=== PATIENT | female | born 1955 | race Hispanic/Latino ===

== ENCOUNTER 2021-03-13 13:52 | Emergency (ER) | payer MEDICARE ==
[2021-03-13] MEDS ORDERED: LISINOPRIL 5 MG TAB PO ONE (14:13)
[2021-03-13] MEDS ORDERED: ACETAMINOPHEN 500 MG TAB PO ONE (14:13)
[2021-03-13] MEDS ORDERED: METOPROLOL TARTRATE 50 MG TAB PO ONE (14:13)
[2021-03-13] MEDS ORDERED: hydrALAZINE 25 MG TAB PO ONE (14:13)
--- NOTE | 2021-03-13 14:27 | Emergency Department Report ---
ED General Adult HPI - General Chief complaint: Headache Stated complaint: HEADACHE Time Seen by Provider: 03/13/21 14:06 Source: patient, EMS Mode of arrival: Stretcher Limitations: No Limitations - History of Present Illness Initial comments: Patient presents secondary to headache and elevated blood pressure. [place]. Apparently they tried to wake her at 6:30 AM by intercom. She did not wake up and slept through this announcement. When she woke up, she needed her blood pressure medication. She normally takes lisinopril, metoprolol, and hydralazine twice a day. Because she did not get up at 630, apparently sarah refused to give her the medication and told her "you should have gotten up when we woke you." Patient now has a global headache. It is not worse with inspiration. Was gradual onset not abrupt. It was not at maximum intensity at the time of onset. She states that they would not give her Tylenol and was directed here for evaluation. Patient has no blurred vision or double vision. Has no chest pain. Is no shortness of breath. She does state that she has some wheezing and that is chronic for her but she does not have an albuterol inhaler to use. Severity scale (0 -10): 8 - Related Data Previous Rx's Medication Instructions Recorded Last Taken Type Albuterol Sulfate [Proventil Hfa] 2 puff IH 4XD #1 inh 03/13/21 Unknown Rx hydrOXYzine PAMOATE [Vistaril] 25 mg PO HS PRN #20 cap 03/13/21 Unknown Rx Allergies Allergy/AdvReac Type Severity Reaction Status Date / Time codeine Allergy Unknown Verified 03/13/21 14:00 steroids AdvReac Shortness Uncoded 03/13/21 14:00 of Breath ED Review of Systems ROS: Stated complaint: HEADACHE Other details as noted in HPI Comment: All other systems reviewed and negative Constitutional: denies: fever Eyes: denies: vision change ENT: denies: throat pain Respiratory: denies: cough Cardiovascular: denies: chest pain Endocrine: denies: unexplained weight loss Gastrointestinal: denies: abdominal pain Genitourinary: denies: dysuria Musculoskeletal: denies: back pain Skin: denies: rash Neurological: denies: headache Hematological/Lymphatic: denies: easy bruising ED Past Medical Hx - Past Medical History Previous Medical History?: Yes Hx Hypertension: Yes Hx Psychiatric Treatment: Yes (Depression) Additional medical history: Diverticulosis, ulcerative colitis - Medications Home Medications: Home Medications Medication Instructions Recorded Confirmed Last Taken Type Albuterol Sulfate [Proventil Hfa] 2 puff IH 4XD #1 inh 03/13/21 Unknown Rx hydrOXYzine PAMOATE [Vistaril] 25 mg PO HS PRN #20 cap 03/13/21 Unknown Rx ED Physical Exam - General Limitations: No Limitations, Other General appearance: alert, in no apparent distress - Head Head exam: Present: atraumatic, normocephalic - Eye Eye exam: Present: normal appearance. Absent: EOMI - ENT ENT exam: Present: normal orophraynx, normal external ear exam - Neck Neck exam: Present: normal inspection, meningismus - Respiratory Respiratory exam: Present: wheezes. Absent: respiratory distress - Cardiovascular Cardiovascular Exam: Present: regular rate, normal rhythm - GI/Abdominal GI/Abdominal exam: Present: soft. Absent: distended, tenderness - Extremities Exam Extremities exam: Present: normal capillary refill. Absent: calf tenderness - Back Exam Back exam: Absent: CVA tenderness (R), CVA tenderness (L) - Neurological Exam Neurological exam: Present: alert, oriented X3, CN II-XII intact, normal gait. Absent: motor sensory deficit - Psychiatric Psychiatric exam: Present: normal affect, normal mood - Skin Skin exam: Present: warm, dry ED Course Vital Signs 03/13/21 13:54 Temperature 98.7 F Pulse Rate 79 Respiratory 16 Rate Blood Pressure 194/100 [Right] O2 Sat by Pulse 99 Oximetry - Reevaluation(s) Reevaluation #1: 03/13/21 14:31 Patient was given her medications and discharged. Old records noted. ED Medical Decision Making - Medical Decision Making Patient presents with uncontrolled hypertension and a headache. This is likely related to the lack of medication this morning. She has no symptoms suggestive of endorgan damage related to uncontrolled hypertension. Based on a set criteria and guidelines, there is no indication to emergently lower blood pressure in the setting of an asymptomatic patient. Patient was referred back to her primary care physician for ongoing management. I did dose her with her usual dose of medications because the psychiatric facility she was at reportedly refused to. Critical Care Time: No Critical care attestation.: If time is entered above; I have spent that time in minutes in the direct care of this critically ill patient, excluding procedure time. ED Disposition Clinical Impression: Uncontrolled hypertension, Generalized headache, Wheezing Disposition: 01 HOME / SELF CARE / HOMELESS Is pt being admited?: No Condition: Stable Instructions: Form - Headache Record, How to Use a Metered Dose Inhaler, Hypertension, Adult, [id number], Managing Your Hypertension, Hypertension (ED) Additional Instructions: Do not eat salt. Take your medication. Return for problems. Follow-up with a family doctor or referral physician for recheck. Prescriptions: Albuterol Sulfate [Proventil Hfa] 2 puff IH 4XD #1 inh hydrOXYzine PAMOATE [Vistaril] 25 mg PO HS PRN #20 cap PRN Reason: Sleep Referrals: PRIMARY CAREMD [Referring] - 3-5 Days CLARISA WALL MD [Staff Physician] - 3-5 Days
[2021-03-13] MEDS ORDERED: ALBUTEROL 8.5 GM MDI INHALATION IH ONE (15:13)
[2021-03-13 18:27] VITALS: BP 190/80
== END 2021-03-13 18:29 | disposition home or self-care (01) ==
LOC: ED 13:52
DX: R51.9 Headache, unspecified (principal); I10 Essential (primary) hypertension; R06.2 Wheezing; F32.A Depression, unspecified; Z79.899 Other long term (current) drug therapy; Z88.8 Allergy status to other drugs, medicaments and biological substances; Z91.09 Other allergy status, other than to drugs and biological substances
CPT/HCPCS: 99283

== ENCOUNTER 2021-03-29 17:29 | Inpatient (IN) | payer MEDICARE ==
[2021-03-29] MEDS ORDERED: IPRATROPIUM 0.02% NEBU 2.5 ML IH ONE (19:20)
[2021-03-29] MEDS ORDERED: methylPREDNISolone Sod Succinate 125 MG/2 ML INJ IV ONE (19:20)
[2021-03-29] MEDS ORDERED: MAGNESIUM SULFATE 2 GM/50 ML BAG IV ONE (19:20)
[2021-03-29] MEDS ORDERED: ALBUTEROL 2.5 MG/3 ML NEBU IH ONE (19:20)
--- NOTE | 2021-03-29 19:30 | Emergency Department Report ---
ED Shortness of Breath HPI - General Chief Complaint: Dyspnea/Respdistress Stated Complaint: SOB Time Seen by Provider: 03/29/21 19:12 Source: patient, EMS Mode of arrival: Stretcher Limitations: No Limitations - History of Present Illness Initial Comments: Patient is 65-year-old female with history of COPD and asthma. Patient brought to the emergency room from [facility] for evaluation of shortness of breath and difficulty breathing started today. Patient found to be hypoxic with an oxygen saturation of 81% improved to 95% on 4 L. Patient received albuterol by EMS with some improvement. Patient denied any fever or chills. She also denied any chest pain. No nausea or vomiting. No abdominal pain. MD Complaint: shortness of breath, cough Known History Of: COPD, asthma - Related Data Previous Rx's Medication Instructions Recorded Last Taken Type Albuterol Sulfate [Proventil Hfa] 2 puff IH 4XD #1 inh 03/13/21 Unknown Rx hydrOXYzine PAMOATE [Vistaril] 25 mg PO HS PRN #20 cap 03/13/21 Unknown Rx Allergies Allergy/AdvReac Type Severity Reaction Status Date / Time codeine Allergy Unknown Verified 03/13/21 14:00 steroids AdvReac Shortness Uncoded 03/13/21 14:00 of Breath ED Review of Systems ROS: Stated complaint: SOB Other details as noted in HPI Comment: All other systems reviewed and negative Constitutional: denies: chills, diaphoresis Respiratory: cough, shortness of breath, SOB with exertion, SOB at rest, wheezing Cardiovascular: denies: chest pain, palpitations Gastrointestinal: denies: abdominal pain, nausea, vomiting Musculoskeletal: denies: back pain Neurological: denies: headache, weakness, numbness, paresthesias, confusion ED Past Medical Hx - Past Medical History Previous Medical History?: Yes Hx Hypertension: Yes Hx Psychiatric Treatment: Yes (Depression) Additional medical history: Diverticulosis, ulcerative colitis - Surgical History Past Surgical History?: Yes - Medications Home Medications: Home Medications Medication Instructions Recorded Confirmed Last Taken Type Albuterol Sulfate [Proventil Hfa] 2 puff IH 4XD #1 inh 03/13/21 03/30/21 Unknown Rx hydrOXYzine PAMOATE [Vistaril] 25 mg PO HS PRN #20 cap 03/13/21 03/30/21 Unknown Rx ED Physical Exam - General Limitations: No Limitations General appearance: alert, in no apparent distress - Head Head exam: Present: atraumatic, normocephalic, normal inspection - Eye Eye exam: Present: normal appearance - ENT ENT exam: Present: normal exam, normal orophraynx, mucous membranes moist - Neck Neck exam: Present: normal inspection, full ROM. Absent: tenderness, meningismus - Respiratory Respiratory exam: Present: respiratory distress, wheezes, rhonchi, decreased breath sounds, prolonged expiratory. Absent: rales - Cardiovascular Cardiovascular Exam: Present: regular rate, normal rhythm, normal heart sounds - GI/Abdominal GI/Abdominal exam: Present: soft, normal bowel sounds. Absent: distended, tenderness, guarding, rebound, rigid, organomegaly, mass, bruit, pulsatile mass, hernia - Extremities Exam Extremities exam: Present: normal inspection, full ROM, normal capillary refill. Absent: tenderness, pedal edema, joint swelling, calf tenderness - Back Exam Back exam: Present: normal inspection, full ROM. Absent: CVA tenderness (R), CVA tenderness (L) - Neurological Exam Neurological exam: Present: alert, oriented X3, CN II-XII intact, normal gait, reflexes normal. Absent: motor sensory deficit - Psychiatric Psychiatric exam: Present: normal mood - Skin Skin exam: Present: warm, intact, normal color ED Course Vital Signs 03/29/21 03/29/21 03/29/21 18:55 19:50 19:54 Temperature 99.5 F Pulse Rate 104 H Pulse Rate [ Anterior Bilateral Throughout] Respiratory 85 H 18 26 H Rate Respiratory Rate [Anterior Bilateral Throughout] Blood Pressure Blood Pressure 199/89 [Left] O2 Sat by Pulse 95 95 Oximetry 03/29/21 03/29/21 03/29/21 20:01 20:15 20:17 Temperature Pulse Rate 104 H 102 H Pulse Rate [ 102 H Anterior Bilateral Throughout] Respiratory 38 H 26 H Rate Respiratory 25 H Rate [Anterior Bilateral Throughout] Blood Pressure 142/85 187/82 Blood Pressure [Left] O2 Sat by Pulse 95 92 Oximetry 03/29/21 03/29/21 03/29/21 20:19 20:45 21:01 Temperature Pulse Rate 110 H 102 H Pulse Rate [ Anterior Bilateral Throughout] Respiratory 28 H 38 H Rate Respiratory Rate [Anterior Bilateral Throughout] Blood Pressure 150/100 148/89 Blood Pressure [Left] O2 Sat by Pulse 91 Oximetry 03/29/21 03/29/21 03/29/21 21:15 21:20 21:31 Temperature Pulse Rate Pulse Rate [ 110 H Anterior Bilateral Throughout] Respiratory Rate Respiratory 24 Rate [Anterior Bilateral Throughout] Blood Pressure 148/89 148/89 Blood Pressure [Left] O2 Sat by Pulse 93 94 Oximetry 03/29/21 03/29/21 03/29/21 21:45 22:01 22:15 Temperature Pulse Rate Pulse Rate [ Anterior Bilateral Throughout] Respiratory Rate Respiratory Rate [Anterior Bilateral Throughout] Blood Pressure 148/89 148/89 148/89 Blood Pressure [Left] O2 Sat by Pulse 90 92 91 Oximetry 03/29/21 03/29/21 03/29/21 22:31 22:45 23:01 Temperature Pulse Rate Pulse Rate [ Anterior Bilateral Throughout] Respiratory Rate Respiratory Rate [Anterior Bilateral Throughout] Blood Pressure 148/89 148/89 148/89 Blood Pressure [Left] O2 Sat by Pulse 91 97 96 Oximetry 03/29/21 03/29/21 03/29/21 23:15 23:31 23:45 Temperature Pulse Rate Pulse Rate [ Anterior Bilateral Throughout] Respiratory Rate Respiratory Rate [Anterior Bilateral Throughout] Blood Pressure 148/89 148/89 148/89 Blood Pressure [Left] O2 Sat by Pulse 97 95 94 Oximetry 03/30/21 03/30/21 03/30/21 00:01 06:01 06:15 Temperature Pulse Rate Pulse Rate [ Anterior Bilateral Throughout] Respiratory Rate Respiratory Rate [Anterior Bilateral Throughout] Blood Pressure 148/89 148/89 148/89 Blood Pressure [Left] O2 Sat by Pulse 95 93 95 Oximetry 03/30/21 03/30/21 03/30/21 06:31 06:45 07:01 Temperature Pulse Rate Pulse Rate [ Anterior Bilateral Throughout] Respiratory Rate Respiratory Rate [Anterior Bilateral Throughout] Blood Pressure 148/89 148/89 148/89 Blood Pressure [Left] O2 Sat by Pulse 94 95 95 Oximetry 03/30/21 03/30/21 03/30/21 07:15 07:31 07:45 Temperature Pulse Rate Pulse Rate [ Anterior Bilateral Throughout] Respiratory Rate Respiratory Rate [Anterior Bilateral Throughout] Blood Pressure 148/89 148/89 148/89 Blood Pressure [Left] O2 Sat by Pulse 95 93 92 Oximetry 03/30/21 03/30/21 03/30/21 08:01 08:15 08:30 Temperature Pulse Rate 91 H 89 89 Pulse Rate [ Anterior Bilateral Throughout] Respiratory 17 33 H 32 H Rate Respiratory Rate [Anterior Bilateral Throughout] Blood Pressure 180/85 180/85 180/85 Blood Pressure [Left] O2 Sat by Pulse 91 90 92 Oximetry 03/30/21 03/30/21 03/30/21 08:45 09:00 09:15 Temperature Pulse Rate 87 91 H Pulse Rate [ Anterior Bilateral Throughout] Respiratory 32 H 26 H Rate Respiratory Rate [Anterior Bilateral Throughout] Blood Pressure 180/85 180/85 181/88 Blood Pressure [Left] O2 Sat by Pulse 96 95 88 Oximetry 03/30/21 03/30/21 03/30/21 09:30 09:45 10:01 Temperature Pulse Rate Pulse Rate [ Anterior Bilateral Throughout] Respiratory Rate Respiratory Rate [Anterior Bilateral Throughout] Blood Pressure 180/85 181/88 181/88 Blood Pressure [Left] O2 Sat by Pulse 95 94 Oximetry 03/30/21 03/30/21 03/30/21 10:15 10:30 10:46 Temperature Pulse Rate Pulse Rate [ Anterior Bilateral Throughout] Respiratory Rate Respiratory Rate [Anterior Bilateral Throughout] Blood Pressure 181/88 181/88 181/88 Blood Pressure [Left] O2 Sat by Pulse 95 90 Oximetry 03/30/21 03/30/21 03/30/21 11:00 11:16 11:30 Temperature Pulse Rate Pulse Rate [ Anterior Bilateral Throughout] Respiratory Rate Respiratory Rate [Anterior Bilateral Throughout] Blood Pressure 181/88 193/95 193/95 Blood Pressure [Left] O2 Sat by Pulse 89 96 95 Oximetry 03/30/21 03/30/21 03/30/21 11:45 12:00 12:03 Temperature Pulse Rate Pulse Rate [ Anterior Bilateral Throughout] Respiratory 16 Rate Respiratory Rate [Anterior Bilateral Throughout] Blood Pressure 193/95 193/95 Blood Pressure [Left] O2 Sat by Pulse 100 93 Oximetry 03/30/21 03/30/21 03/30/21 12:20 12:30 12:46 Temperature Pulse Rate 91 H 94 H Pulse Rate [ Anterior Bilateral Throughout] Respiratory 31 H 30 H Rate Respiratory Rate [Anterior Bilateral Throughout] Blood Pressure 199/109 199/109 199/109 Blood Pressure [Left] O2 Sat by Pulse 91 92 Oximetry 03/30/21 03/30/21 03/30/21 13:00 13:16 13:30 Temperature Pulse Rate 90 89 90 Pulse Rate [ Anterior Bilateral Throughout] Respiratory 32 H 24 23 Rate Respiratory Rate [Anterior Bilateral Throughout] Blood Pressure 199/109 199/109 154/74 Blood Pressure [Left] O2 Sat by Pulse 90 92 91 Oximetry 03/30/21 03/30/21 03/30/21 13:46 14:00 14:16 Temperature Pulse Rate 90 96 H 90 Pulse Rate [ Anterior Bilateral Throughout] Respiratory 16 16 12 Rate Respiratory Rate [Anterior Bilateral Throughout] Blood Pressure 154/74 154/74 154/74 Blood Pressure [Left] O2 Sat by Pulse 94 93 95 Oximetry 03/30/21 03/30/21 03/30/21 14:38 14:45 15:03 Temperature Pulse Rate Pulse Rate [ Anterior Bilateral Throughout] Respiratory Rate Respiratory Rate [Anterior Bilateral Throughout] Blood Pressure 154/74 154/74 154/74 Blood Pressure [Left] O2 Sat by Pulse 81 L 92 Oximetry 03/30/21 03/30/21 03/30/21 15:16 15:32 15:46 Temperature Pulse Rate 88 Pulse Rate [ Anterior Bilateral Throughout] Respiratory 31 H Rate Respiratory Rate [Anterior Bilateral Throughout] Blood Pressure 154/74 154/74 164/85 Blood Pressure [Left] O2 Sat by Pulse 82 L 89 97 Oximetry 03/30/21 03/30/21 03/30/21 16:00 16:16 16:30 Temperature Pulse Rate 88 88 103 H Pulse Rate [ Anterior Bilateral Throughout] Respiratory 29 H 25 H 24 Rate Respiratory Rate [Anterior Bilateral Throughout] Blood Pressure 169/91 169/91 169/91 Blood Pressure [Left] O2 Sat by Pulse 97 97 88 Oximetry 03/30/21 03/30/21 16:46 17:52 Temperature Pulse Rate 95 H 108 H Pulse Rate [ Anterior Bilateral Throughout] Respiratory 31 H Rate Respiratory Rate [Anterior Bilateral Throughout] Blood Pressure 169/91 Blood Pressure [Left] O2 Sat by Pulse 94 Oximetry ED Medical Decision Making - Lab Data Result diagrams: 03/30/21 04:28 03/30/21 04:28 - Radiology Data Radiology results: report reviewed - Medical Decision Making Patient is 65-year-old female with history of COPD and asthma. Patient brought to the emergency room from [facility] for evaluation of shortness of breath and difficulty breathing started today. Patient found to be hypoxic with an oxygen saturation of 81% improved to 95% on 4 L. Patient received albuterol by EMS with some improvement. Patient denied any fever or chills. She also denied any chest pain. No nausea or vomiting. No abdominal pain. Chest x-ray showed bilateral pneumonia. Labs reviewed and showed a potassium of 2.7. Patient received Levaquin, Solu-Medrol, albuterol, Atrovent. Potassium replaced with 20 mEq potassium chloride IV and I also added a 40 mEq p.o. I discussed the patient with Dr. Garces, he agreed to admit the patient to medical service for further management. Critical Care Time: Yes Critical care time in (mins) excluding proc time.: 35 Critical care attestation.: If time is entered above; I have spent that time in minutes in the direct care of this critically ill patient, excluding procedure time. ED Disposition Clinical Impression: Acute respiratory failure with hypoxia, Bilateral pneumonia, Acute hypokalemia, Suspected COVID-19 virus infection Disposition: 09 ADMITTED INPATIENT Is pt being admited?: Yes Condition: Stable
--- NOTE | 2021-03-29 19:56 | XRay Report ---
CHEST 1 VIEW 03/29/2021 7:29 PM INDICATION / CLINICAL INFORMATION: Dyspnea. COMPARISON: None available. FINDINGS: SUPPORT DEVICES: None. HEART / MEDIASTINUM: No significant abnormality. LUNGS / PLEURA: Severe bilateral parenchymal disease No pneumothorax. ADDITIONAL FINDINGS: No significant additional findings. IMPRESSION: 1. Bilateral pneumonia Signer Name: Minh Gomez MD Signed: 03/29/2021 7:52 PM Workstation Name: [id number]
[2021-03-29 20:46] LABS: Basophils # (Auto) 0.1 K/mm3 (0.0-0.1); Basophils % (Auto) 0.8 % (0.0-1.8); Eosinophils % (Auto) 0.4 % (0.0-4.3); Hematocrit 29.6 % (30.3-42.9); Hemoglobin 10.6 gm/dl (10.1-14.3); Lymphocytes # (Auto) 1.1 K/mm3 (1.2-5.4); Mean Corpuscular HGB Conc 36 % (30-34); Mean Corpuscular Volume 92 fl (79-97); Monocytes # (Auto) 0.8 K/mm3 (0.0-0.8); Monocytes % (Auto) 9.6 % (0.0-7.3); Platelet Count 246 K/mm3 (140-440); Red Blood Count 3.21 M/mm3 (3.65-5.03); Red Cell Distribution Width 15.3 % (13.2-15.2)
[2021-03-29 21:01] LABS: INR 0.97 (0.87-1.13)
[2021-03-29 21:02] LABS: Partial Thromboplastin Time 31.4 Sec. (24.2-36.6)
[2021-03-29 21:11] LABS: BUN/Creatinine Ratio 10; Blood Urea Nitrogen 5 mg/dL (7-17); Calcium 9.1 mg/dL (8.4-10.2); Hemolysis Index 2
[2021-03-29] MEDS ORDERED: POTASSIUM CHLORIDE ER 20 MEQ TAB PO ONE (21:34)
[2021-03-29] MEDS ORDERED: ONDANSETRON 4 MG/2 ML INJ IV PRN (23:34)
[2021-03-29] MEDS ORDERED: MAGNESIUM HYDROXIDE (MOM) ORAL LIQD UDC PO PRN (23:34)
[2021-03-29] MEDS ORDERED: ACETAMINOPHEN 325 MG TAB PO PRN (23:34)
[2021-03-29] MEDS ORDERED: SODIUM CHLORIDE 0.9% 1000 ML 1,000 ML IV SCH (23:45)
--- NOTE | 2021-03-29 23:52 | History and Physical Report ---
History of Present Illness Date of examination: 03/29/21 Date of admission: 03/29/2021 Chief complaint: Difficulty Breathing History of present illness: 65-year-old female with known history of asthma and COPD brought in from [facility] facility for evaluation of shortness of breath difficulty breathing. Symptoms were said to have started sometime earlier today. Upon arrival of EMS patient was found to be hypoxic with oxygen saturation of 81% on room air. Sandor ram was later put on 4 L oxygen with saturation improving to about 95%. Patient also received some nebulizing treatment in route to the hospital. She denies any fever or chills, no chest pain, no nausea vomiting, no abdominal pain. Patient denies any sick contacts and no recent travel. No contact with anyone with COVID-19. She however admits that she has not been vaccinated against COVID-19. Work-up in the emergency room today, chest x-ray reveals bilateral pneumonia. Labs significant for hypokalemia of 2.7 Patient has been started on empiric IV antibiotics. Potassium has been repleted. Patient will also be screened for COVID-19. Past History Past Medical History: COPD, hypertension, other (Depression,: Diverticulosis, ulcerative colitis, asthma) Past Surgical History: No surgical history Social history: no significant social history Family history: no significant family history Medications and Allergies Allergies Allergy/AdvReac Type Severity Reaction Status Date / Time codeine Allergy Unknown Verified 03/13/21 14:00 steroids AdvReac Shortness Uncoded 03/13/21 14:00 of Breath Home Medications Medication Instructions Recorded Confirmed Last Taken Type Albuterol Sulfate [Proventil Hfa] 2 puff IH 4XD #1 inh 03/13/21 Unknown Rx hydrOXYzine PAMOATE [Vistaril] 25 mg PO HS PRN #20 cap 03/13/21 Unknown Rx Active Meds: Active Medications Acetaminophen (Acetaminophen 325 Mg Tab) 650 mg PO Q4H PRN PRN Reason: Pain MILD(1-3)/Fever >100.5/NAVARRO Heparin Sodium (Porcine) (Heparin 5,000 Unit/1 Ml Vial) 5,000 unit SUB-Q Q8HR LU Potassium Chloride (Kcl 10meq/100ml) 10 meq in 100 mls @ 100 mls/hr IV Q1H LU Stop: 03/29/21 23:59 Sodium Chloride (Nacl 0.9% 1000 Ml) 1,000 mls @ 75 mls/hr IV DIRECT LU Levofloxacin/Dextrose (Levaquin 750mg/150ml) 750 mg in 150 mls @ 100 mls/hr IV Q24HR LU; Protocol Magnesium Hydroxide (Magnesium Hydroxide (Mom) Oral Liqd Udc) 30 ml PO Q4H PRN PRN Reason: Constipation Ondansetron HCl (Ondansetron 4 Mg/2 Ml Inj) 4 mg IV Q8H PRN PRN Reason: Nausea And Vomiting Sodium Chloride (Sodium Chloride 0.9% 10 Ml Flush Syringe) 10 ml IV BID LU Sodium Chloride (Sodium Chloride 0.9% 10 Ml Flush Syringe) 10 ml IV PRN PRN PRN Reason: LINE FLUSH Review of Systems Constitutional: no fever, no chills Ears, nose, mouth and throat: no nasal congestion, no sore throat Cardiovascular: no chest pain, no palpitations Respiratory: shortness of breath, wheezing, no cough Gastrointestinal: no abdominal pain, no nausea, no vomiting, no diarrhea Genitourinary Female: no pelvic pain, no flank pain, no dysuria, no hematuria Musculoskeletal: no neck pain, no low back pain Integumentary: no rash, no pruritis Neurological: no headaches, no confusion Psychiatric: no anxiety, no depression Endocrine: no heat intolerance, no polydipsia, no polyuria, no nocturia Exam - Constitutional Vitals: Temp Pulse Resp BP Pulse Ox 99.5 F 102 H 25 H 199/89 91 03/29/21 19:54 03/29/21 20:17 03/29/21 20:17 03/29/21 19:54 03/29/21 20:19 General appearance: Present: no acute distress, well-nourished - EENT Eyes: Present: PERRL, EOM intact. Absent: scleral icterus ENT: hearing intact, clear oral mucosa, dentition normal - Neck Neck: Present: supple, normal ROM - Respiratory Respiratory effort: normal Respiratory: bilateral: diminished - Cardiovascular Rhythm: regular Heart Sounds: Present: S1 & S2. Absent: gallop, systolic murmur, diastolic murmur, rub, click - Extremities Extremities: no ischemia, pulses intact, pulses symmetrical, No edema, normal temperature, normal color, Full ROM Peripheral Pulses: within normal limits - Abdominal General gastrointestinal: Present: soft, non-tender, non-distended, normal bowel sounds. Absent: mass - Integumentary Integumentary: Present: clear, warm, dry. Absent: rash - Musculoskeletal Musculoskeletal: strength equal bilaterally - Psychiatric Psychiatric: appropriate mood/affect, intact judgment & insight, memory intact, cooperative - Neurologic Neurologic: CNII-XII intact, no focal deficits, moves all extremities HEART Score - HEART Score Troponin: Troponin T < 0.010 ng/mL (0.00-0.029) 03/29/21 20: Results - Labs CBC & Chem 7: 03/29/21 20:03/29/21 20: Labs: Abnormal lab results 03/29/21 03/29/21 03/29/21 Range/Units 20: 20: 20: RBC 3.21 L (3.65-5.03) M/mm3 Hct 29.6 L (30.3-42.9) % MCH 33 H (28-32) pg MCHC 36 H (30-34) % RDW 15.3 H (13.2-15.2) % Lymph % (Auto) 13.0 L (13.4-35.0) % Boyle % (Auto) 9.6 H (0.0-7.3) % Lymph # (Auto) 1.1 L (1.2-5.4) K/mm3 Seg Neutrophils % 76.2 H (40.0-70.0) % Potassium 2.7 L* (3.6-5.0) mmol/L BUN 5 L (7-17) mg/dL Creatinine 0.5 L (0.6-1.2) mg/dL NT-Pro-B Natriuret Pep 3058 H (0-900) pg/mL Assessment and Plan - Patient Problems (1) Bilateral pneumonia Current Visit: Yes Status: Acute Plan to address problem: Patient started on empiric IV antibiotics. We will also await COVID-19 testing. (2) Acute respiratory failure with hypoxia Current Visit: Yes Status: Acute Plan to address problem: Possibly secondary to the underlying pneumonia. We will keep O2 saturation greater or equal to 92%. (3) Acute hypokalemia Current Visit: Yes Status: Acute Plan to address problem: Potassium will be repleted and will monitor chemistry. (4) Hypertension Current Visit: Yes Status: Acute Plan to address problem: We will resume routine home medications and monitor vital signs closely. (5) History of COPD Current Visit: Yes Status: Acute Plan to address problem: We placed on nebulizing treatments as needed. (6) DVT prophylaxis Current Visit: Yes Status: Acute Plan to address problem: Patient placed on subcutaneous heparin. (7) Full code status Current Visit: Yes Status: Acute Plan to address problem: Patient is full code.
[2021-03-30 05:18] LABS: Blood Urea Nitrogen 7 mg/dL (7-17); Hemolysis Index 8
[2021-03-30 05:19] LABS: BUN/Creatinine Ratio 14
[2021-03-30 05:44] LABS: Hematocrit 30.3 % (30.3-42.9); Hemoglobin 10.2 gm/dl (10.1-14.3); Mean Corpuscular HGB Conc 34 % (30-34); Mean Corpuscular Volume 94 fl (79-97); Platelet Count 224 K/mm3 (140-440); Red Blood Count 3.23 M/mm3 (3.65-5.03); Red Cell Distribution Width 15.3 % (13.2-15.2)
[2021-03-30 07:11] LABS: Band Neutrophils # (Manual) 0.1 K/mm3; Basophils % (Manual) 0 % (0.0-1.8); Eosinophils % (Manual) 0 % (0.0-4.3); Monocytes % (Manual) 0 % (0.0-7.3); Total Cells Counted 100
[2021-03-30 07:12] LABS: Anisocytosis Few; Hypochromasia Few; Platelet Estimate Consistent w Auto
--- NOTE | 2021-03-30 07:40 | Progress Note ---
Assessment and Plan Assessment and plan: #Acute respiratory failure with hypoxia -Possibly secondary to the underlying pneumonia. -currently on 4LPM NC, no oxygen at home; will wean as tolerated -will keep O2 saturation greater or equal to 92% -continue steroids and abx for now -given symptoms concerning for CHF and elevated BNP TTE ordered #Bilateral pneumonia Patient started on empiric IV antibiotics. -COVID-19 PCR pending -ID consulted, assistance appreciated #Acute hypokalemia -improved after supplementation -will continue to replete and monitor #Hypertension -restarted hydralazine and lisinopril at home doses #History of COPD -stable -not on any inhalers at the moment -PRN nebulizing treatments #Tobacco dependence -currently smoking 1/2 ppd -smoking cessation counseling, supportive care, behavior change counseling, +15 minutes. #History of chronic pain -per patient -will provide PRN pain control History Interval history: No acute events overnight. Patient reports still having shortness of breath. N o current complaints at this time. Hospitalist Physical - Physical exam Narrative exam: GENERAL: Well-developed well-nourished. Sitting on the side of the bed in no acute distress. HEENT: Normocephalic. Atraumatic. NECK: Supple. CHEST/LUNGS: CTAB on room air HEART/CARDIOVASCULAR: RRR. No murmur, rubs or gallops appreciated. ABDOMEN: +BS. NT/ND. SKIN: No rashes noted. NEURO: No focal motor deficit. Follows all commands and is ambulatory. MUSCULOSKELETAL: No joint effusion EXTREMITIES: No cyanosis, cubbing or edema. PSYCH: Cooperative. - Constitutional Vitals: Temp Pulse Resp BP Pulse Ox 99.5 F 110 H 24 148/89 95 03/29/21 19:54 03/29/21 21:20 03/29/21 21:20 03/30/21 07:01 03/30/21 07:01 General appearance: Present: no acute distress, well-nourished HEART Score - HEART Score Troponin: Troponin T < 0.010 ng/mL (0.00-0.029) 03/29/21 20:27 Results - Labs CBC & Chem 7: 03/30/21 04:28 03/30/21 04:28 Labs: Laboratory Last Values WBC 5.8 K/mm3 (4.5-11.0) 03/30/21 04:28 RBC 3.23 M/mm3 (3.65-5.03) L 03/30/21 04:28 Hgb 10.2 gm/dl (10.1-14.3) 03/30/21 04:28 Hct 30.3 % (30.3-42.9) 03/30/21 04:28 MCV 94 fl (79-97) 03/30/21 04:28 MCH 31 pg (28-32) 03/30/21 04:28 MCHC 34 % (30-34) 03/30/21 04:28 RDW 15.3 % (13.2-15.2) H 03/30/21 04:28 Plt Count 224 K/mm3 (140-440) 03/30/21 04:28 Lymph % (Auto) 13.0 % (13.4-35.0) L 03/29/21 20: [place] % (Auto) 9.6 % (0.0-7.3) H 03/29/21 20: Eos % (Auto) 0.4 % (0.0-4.3) 03/29/21 20: Baso % (Auto) 0.8 % (0.0-1.8) 03/29/21 20: Lymph # (Auto) 1.1 K/mm3 (1.2-5.4) L 03/29/21 20: [place] # (Auto) 0.8 K/mm3 (0.0-0.8) 03/29/21 20: Eos # (Auto) 0.0 K/mm3 (0.0-0.4) 03/29/21 20: Baso # (Auto) 0.1 K/mm3 (0.0-0.1) 03/29/21 20: Add Manual Diff Complete 03/30/21 04:28 Total Counted 100 03/30/21 04:28 Seg Neutrophils % [employer] 03/30/21 04:28 Seg Neuts % (Manual) 95.0 % (40.0-70.0) H 03/30/21 04:28 Band Neutrophils % 1.0 % 03/30/21 04:28 Lymphocytes % (Manual) 4.0 % (13.4-35.0) L 03/30/21 04:28 Reactive Lymphs % (Man) 0 % 03/30/21 04:28 Monocytes % (Manual) 0 % (0.0-7.3) 03/30/21 04:28 Eosinophils % (Manual) 0 % (0.0-4.3) 03/30/21 04:28 Basophils % (Manual) 0 % (0.0-1.8) 03/30/21 04:28 Metamyelocytes % 0 % 03/30/21 04:28 Myelocytes % 0 % 03/30/21 04:28 Promyelocytes % 0 % 03/30/21 04:28 Blast Cells % 0 % 03/30/21 04:28 Nucleated RBC % Not Reportable 03/30/21 04:28 Seg Neutrophils # 6.4 K/mm3 (1.8-7.7) 03/29/21 20:27 Seg Neutrophils # Man 5.5 K/mm3 (1.8-7.7) 03/30/21 04:28 Band Neutrophils # 0.1 K/mm3 03/30/21 04:28 Lymphocytes # (Manual) 0.2 K/mm3 (1.2-5.4) L 03/30/21 04:28 Abs React Lymphs (Man) 0.0 K/mm3 03/30/21 04:28 Monocytes # (Manual) 0.0 K/mm3 (0.0-0.8) 03/30/21 04:28 Eosinophils # (Manual) 0.0 K/mm3 (0.0-0.4) 03/30/21 04:28 Basophils # (Manual) 0.0 K/mm3 (0.0-0.1) 03/30/21 04:28 Metamyelocytes # 0.0 K/mm3 03/30/21 04:28 Myelocytes # 0.0 K/mm3 03/30/21 04:28 Promyelocytes # 0.0 K/mm3 03/30/21 04:28 Blast Cells # 0.0 K/mm3 03/30/21 04:28 WBC Morphology Not Reportable 03/30/21 04:28 Hypersegmented Neuts Not Reportable 03/30/21 04:28 Hyposegmented Neuts Not Reportable 03/30/21 04:28 Hypogranular Neuts Not Reportable 03/30/21 04:28 Smudge Cells Not Reportable 03/30/21 04:28 Toxic Granulation Not Reportable 03/30/21 04:28 Toxic Vacuolation Not Reportable 03/30/21 04:28 Dohle Bodies Not Reportable 03/30/21 04:28 Pelger-Huet Anomaly Not Reportable 03/30/21 04:28 Meena Rods Not Reportable 03/30/21 04:28 Platelet Estimate Consistent w auto 03/30/21 04:28 Clumped Platelets Not Reportable 03/30/21 04:28 Plt Clumps, EDTA Not Reportable 03/30/21 04:28 Large Platelets Not Reportable 03/30/21 04:28 Giant Platelets Not Reportable 03/30/21 04:28 Platelet Satelliting Not Reportable 03/30/21 04:28 Plt Morphology Comment Not Reportable 03/30/21 04:28 RBC Morphology Not Reportable 03/30/21 04:28 Dimorphic RBCs Not Reportable 03/30/21 04:28 Polychromasia Few 03/30/21 04:28 Hypochromasia Few 03/30/21 04:28 Poikilocytosis Not Reportable 03/30/21 04:28 Anisocytosis Few 03/30/21 04:28 Microcytosis Not Reportable 03/30/21 04:28 Macrocytosis Not Reportable 03/30/21 04:28 Spherocytes Not Reportable 03/30/21 04:28 Pappenheimer Bodies Not Reportable 03/30/21 04:28 Sickle Cells Not Reportable 03/30/21 04:28 Target Cells Not Reportable 03/30/21 04:28 Tear Drop Cells Not Reportable 03/30/21 04:28 Ovalocytes Not Reportable 03/30/21 04:28 Helmet Cells Not Reportable 03/30/21 04:28 [place] Bodies Not Reportable 03/30/21 04:28 [place] Rings Not Reportable 03/30/21 04:28 [place] Cells Not Reportable 03/30/21 04:28 Bite Cells Not Reportable 03/30/21 04:28 Crenated Cell Not Reportable 03/30/21 04:28 Elliptocytes Not Reportable 03/30/21 04:28 Acanthocytes (Spur) Not Reportable 03/30/21 04:28 Rouleaux Not Reportable 03/30/21 04:28 Hemoglobin C Crystals Not Reportable 03/30/21 04:28 Schistocytes Not Reportable 03/30/21 04:28 Malaria parasites Not Reportable 03/30/21 04:28 Ramesh Bodies Not Reportable 03/30/21 04:28 Hem Pathologist Commnt No 03/30/21 04:28 PT 14.0 Sec. (12.2-14.9) 03/29/21 20:27 INR 0.97 (0.87-1.13) 03/29/21 20:27 APTT 31.4 Sec. (24.2-36.6) 03/29/21 20:27 Sodium 142 mmol/L (137-145) 03/30/21 04:28 Potassium 3.6 mmol/L (3.6-5.0) D 03/30/21 04:28 Chloride 101.3 mmol/L (98-107) 03/30/21 04:28 Carbon Dioxide 24 mmol/L (22-30) 03/30/21 04:28 Anion Gap 20 mmol/L 03/30/21 04:28 BUN 7 mg/dL (7-17) 03/30/21 04:28 Creatinine 0.5 mg/dL (0.6-1.2) L 03/30/21 04:28 Estimated GFR > 60 ml/min 03/30/21 04:28 BUN/Creatinine Ratio 14 % 03/30/21 04:28 Glucose 203 mg/dL (65-100) H 03/30/21 04:28 Lactic Acid 1.30 mmol/L (0.7-2.0) 03/29/21 20:27 Calcium 9.0 mg/dL (8.4-10.2) 03/30/21 04:28 Troponin T < 0.010 ng/mL (0.00-0.029) 03/29/21 20:27 NT-Pro-B Natriuret Pep 3058 pg/mL (0-900) H 03/29/21 20:27 Microbiology: Microbiology 03/29/21 20:34 Peripheral/Venous Blood Culture - Preliminary Culture in Progress 03/29/21 20:27 Peripheral/Venous Blood Culture - Preliminary Culture in Progress Active Medications - Current Medications Current Medications: Generic Name Dose Route Start Last Admin Trade Name Freq PRN Reason Stop Dose Admin Acetaminophen 650 mg 03/29/21 23:34 Acetaminophen 325 Mg Tab PO Q4H PRN Pain MILD(1-3)/Fever >100.5/NAVARRO Albuterol 2 puff 03/30/21 08:00 Albuterol 8.5 Gm Mdi Inhalation IH QIDRT [facility] Heparin Sodium (Porcine) 5,000 unit 03/30/21 06:00 Heparin 5,000 Unit/1 Ml Vial SUB-Q Q8HR [facility] Sodium Chloride 1,000 mls @ 75 mls/hr 03/29/21 23:45 Nacl 0.9% 1000 Ml IV DIRECT [facility] Levofloxacin/Dextrose 750 mg in 150 mls @ 100 mls/hr 03/29/21 23:45 03/30/21 00:57 Levaquin 750mg/150ml IV Not Given Q24HR [facility] Protocol Magnesium Hydroxide 30 ml 03/29/21 23:34 Magnesium Hydroxide (Mom) Oral Liqd Udc PO Q4H PRN Constipation Ondansetron HCl 4 mg 03/29/21 23:34 Ondansetron 4 Mg/2 Ml Inj IV Q8H PRN Nausea And Vomiting Sodium Chloride 10 ml 03/30/21 10:00 Sodium Chloride 0.9% 10 Ml Flush Syringe IV BID LU Sodium Chloride 10 ml 03/29/21 23:34 Sodium Chloride 0.9% 10 Ml Flush Syringe IV PRN PRN LINE FLUSH
[2021-03-30] MEDS: HEPARIN 5,000 UNIT/1 ML VIAL SUB-Q SCH ×3 (08:36→22:42)
[2021-03-30] MEDS: LISINOPRIL 20 MG TAB PO SCH (12:01)
[2021-03-30] MEDS: oxyCODONE /ACETAMINOPHEN 5-325MG TAB PO PRN ×2 (12:03→22:43)
[2021-03-30] MEDS: ALPRAZolam 0.5 MG TAB PO PRN (12:04)
[2021-03-30] MEDS: hydrALAZINE 25 MG TAB PO SCH ×3 (12:08→22:43)
[2021-03-30] MEDS ORDERED: ONDANSETRON 4 MG/2 ML INJ IV PRN (12:57)
[2021-03-30] MEDS ORDERED: oxyCODONE /ACETAMINOPHEN 5-325MG TAB PO PRN (12:57)
[2021-03-30] MEDS ORDERED: HYDROmorphone 1 MG/1 ML INJ IV PRN (12:57)
[2021-03-30] MEDS ORDERED: hydrALAZINE 25 MG TAB PO SCH (14:00)
[2021-03-30] MEDS: ALBUTEROL 8.5 GM MDI INHALATION IH SCH ×2 (17:41→21:30)
[2021-03-30] MEDS: POTASSIUM CHLORIDE 10 MEQ 10 MEQ/100 ML BAG IV SCH (17:54)
[2021-03-31] MEDS: ALPRAZolam 0.5 MG TAB PO PRN ×2 (01:16→12:21)
[2021-03-31] MEDS ORDERED: METOPROLOL TARTRATE 5 MG/5 ML INJ IV ONE (01:55)
[2021-03-31] MEDS: HEPARIN 5,000 UNIT/1 ML VIAL SUB-Q SCH ×4 (07:00→21:54)
[2021-03-31] MEDS ORDERED: ALBUTEROL 2.5 MG/3 ML NEBU IH ONE (07:11)
[2021-03-31] MEDS: ALBUTEROL 8.5 GM MDI INHALATION IH SCH ×5 (08:45→21:58)
[2021-03-31] MEDS: LISINOPRIL 20 MG TAB PO SCH (08:59)
[2021-03-31] MEDS: oxyCODONE /ACETAMINOPHEN 5-325MG TAB PO PRN ×2 (08:59→14:57)
[2021-03-31] MEDS: hydrALAZINE 25 MG TAB PO SCH ×3 (08:59→21:53)
[2021-03-31] MEDS: METOPROLOL TARTRATE 25 MG TAB PO SCH ×2 (12:44→21:52)
--- NOTE | 2021-03-31 13:33 | Progress Note ---
Hospitalist Physical - Constitutional Vitals: Temp Pulse Resp BP Pulse Ox 98.4 F 106 H 22 183/93 85 03/31/21 08:23 03/31/21 08:23 03/31/21 08:23 03/31/21 08:23 03/31/21 08:23 General appearance: Present: no acute distress, well-nourished HEART Score - HEART Score Troponin: Troponin T < 0.010 ng/mL (0.00-0.029) 03/29/21 20: Results - Labs CBC & Chem 7: 03/30/21 04:28 03/30/21 04:28 Labs: Laboratory Last Values WBC 5.8 K/mm3 (4.5-11.0) 03/30/21 04:28 RBC 3.23 M/mm3 (3.65-5.03) L 03/30/21 04:28 Hgb 10.2 gm/dl (10.1-14.3) 03/30/21 04:28 Hct 30.3 % (30.3-42.9) 03/30/21 04:28 MCV 94 fl (79-97) 03/30/21 04:28 MCH 31 pg (28-32) 03/30/21 04:28 MCHC 34 % (30-34) 03/30/21 04:28 RDW 15.3 % (13.2-15.2) H 03/30/21 04:28 Plt Count 224 K/mm3 (140-440) 03/30/21 04:28 Lymph % (Auto) 13.0 % (13.4-35.0) L 03/29/21 20: [place] % (Auto) 9.6 % (0.0-7.3) H 03/29/21 20: Eos % (Auto) 0.4 % (0.0-4.3) 03/29/21 20: Baso % (Auto) 0.8 % (0.0-1.8) 03/29/21 20: Lymph # (Auto) 1.1 K/mm3 (1.2-5.4) L 03/29/21 20: [place] # (Auto) 0.8 K/mm3 (0.0-0.8) 03/29/21 20: Eos # (Auto) 0.0 K/mm3 (0.0-0.4) 03/29/21 20:27 Baso # (Auto) 0.1 K/mm3 (0.0-0.1) 03/29/21 20:27 Add Manual Diff Complete 03/30/21 04:28 Total Counted 100 03/30/21 04:28 Seg Neutrophils % [employer] 03/30/21 04:28 Seg Neuts % (Manual) 95.0 % (40.0-70.0) H 03/30/21 04:28 Band Neutrophils % 1.0 % 03/30/21 04:28 Lymphocytes % (Manual) 4.0 % (13.4-35.0) L 03/30/21 04:28 Reactive Lymphs % (Man) 0 % 03/30/21 04:28 Monocytes % (Manual) 0 % (0.0-7.3) 03/30/21 04:28 Eosinophils % (Manual) 0 % (0.0-4.3) 03/30/21 04:28 Basophils % (Manual) 0 % (0.0-1.8) 03/30/21 04:28 Metamyelocytes % 0 % 03/30/21 04:28 Myelocytes % 0 % 03/30/21 04:28 Promyelocytes % 0 % 03/30/21 04:28 Blast Cells % 0 % 03/30/21 04:28 Nucleated RBC % Not Reportable 03/30/21 04:28 Seg Neutrophils # 6.4 K/mm3 (1.8-7.7) 03/29/21 20:27 Seg Neutrophils # Man 5.5 K/mm3 (1.8-7.7) 03/30/21 04:28 Band Neutrophils # 0.1 K/mm3 03/30/21 04:28 Lymphocytes # (Manual) 0.2 K/mm3 (1.2-5.4) L 03/30/21 04:28 Abs React Lymphs (Man) 0.0 K/mm3 03/30/21 04:28 Monocytes # (Manual) 0.0 K/mm3 (0.0-0.8) 03/30/21 04:28 Eosinophils # (Manual) 0.0 K/mm3 (0.0-0.4) 03/30/21 04:28 Basophils # (Manual) 0.0 K/mm3 (0.0-0.1) 03/30/21 04:28 Metamyelocytes # 0.0 K/mm3 03/30/21 04:28 Myelocytes # 0.0 K/mm3 03/30/21 04:28 Promyelocytes # 0.0 K/mm3 03/30/21 04:28 Blast Cells # 0.0 K/mm3 03/30/21 04:28 WBC Morphology Not Reportable 03/30/21 04:28 Hypersegmented Neuts Not Reportable 03/30/21 04:28 Hyposegmented Neuts Not Reportable 03/30/21 04:28 Hypogranular Neuts Not Reportable 03/30/21 04:28 Smudge Cells Not Reportable 03/30/21 04:28 Toxic Granulation Not Reportable 03/30/21 04:28 Toxic Vacuolation Not Reportable 03/30/21 04:28 Dohle Bodies Not Reportable 03/30/21 04:28 Pelger-Huet Anomaly Not Reportable 03/30/21 04:28 Meena Rods Not Reportable 03/30/21 04:28 Platelet Estimate Consistent w auto 03/30/21 04:28 Clumped Platelets Not Reportable 03/30/21 04:28 Plt Clumps, EDTA Not Reportable 03/30/21 04:28 Large Platelets Not Reportable 03/30/21 04:28 Giant Platelets Not Reportable 03/30/21 04:28 Platelet Satelliting Not Reportable 03/30/21 04:28 Plt Morphology Comment Not Reportable 03/30/21 04:28 RBC Morphology Not Reportable 03/30/21 04:28 Dimorphic RBCs Not Reportable 03/30/21 04:28 Polychromasia Few 03/30/21 04:28 Hypochromasia Few 03/30/21 04:28 Poikilocytosis Not Reportable 03/30/21 04:28 Anisocytosis Few 03/30/21 04:28 Microcytosis Not Reportable 03/30/21 04:28 Macrocytosis Not Reportable 03/30/21 04:28 Spherocytes Not Reportable 03/30/21 04:28 Pappenheimer Bodies Not Reportable 03/30/21 04:28 Sickle Cells Not Reportable 03/30/21 04:28 Target Cells Not Reportable 03/30/21 04:28 Tear Drop Cells Not Reportable 03/30/21 04:28 Ovalocytes Not Reportable 03/30/21 04:28 Helmet Cells Not Reportable 03/30/21 04:28 [place] Bodies Not Reportable 03/30/21 04:28 [place] Rings Not Reportable 03/30/21 04:28 [place] Cells Not Reportable 03/30/21 04:28 Bite Cells Not Reportable 03/30/21 04:28 Crenated Cell Not Reportable 03/30/21 04:28 Elliptocytes Not Reportable 03/30/21 04:28 Acanthocytes (Spur) Not Reportable 03/30/21 04:28 Rouleaux Not Reportable 03/30/21 04:28 Hemoglobin C Crystals Not Reportable 03/30/21 04:28 Schistocytes Not Reportable 03/30/21 04:28 Malaria parasites Not Reportable 03/30/21 04:28 Ramesh Bodies Not Reportable 03/30/21 04:28 Hem Pathologist Commnt No 03/30/21 04:28 PT 14.0 Sec. (12.2-14.9) 03/29/21 20:27 INR 0.97 (0.87-1.13) 03/29/21 20:27 APTT 31.4 Sec. (24.2-36.6) 03/29/21 20:27 Sodium 142 mmol/L (137-145) 03/30/21 04:28 Potassium 3.6 mmol/L (3.6-5.0) D 03/30/21 04:28 Chloride 101.3 mmol/L (98-107) 03/30/21 04:28 Carbon Dioxide 24 mmol/L (22-30) 03/30/21 04:28 Anion Gap 20 mmol/L 03/30/21 04:28 BUN 7 mg/dL (7-17) 03/30/21 04:28 Creatinine 0.5 mg/dL (0.6-1.2) L 03/30/21 04:28 Estimated GFR > 60 ml/min 03/30/21 04:28 BUN/Creatinine Ratio 14 % 03/30/21 04:28 Glucose 203 mg/dL (65-100) H 03/30/21 04:28 Lactic Acid 1.30 mmol/L (0.7-2.0) 03/29/21 20:27 Calcium 9.0 mg/dL (8.4-10.2) 03/30/21 04:28 Troponin T < 0.010 ng/mL (0.00-0.029) 03/29/21 20:27 NT-Pro-B Natriuret Pep 3058 pg/mL (0-900) H 03/29/21 20:27 Coronavirus (PCR) Negative (Negative) 03/30/21 10:00 Microbiology: Microbiology 03/29/21 20:34 Peripheral/Venous Blood Culture - Preliminary NO GROWTH AFTER 24 HOURS 03/29/21 20:27 Peripheral/Venous Blood Culture - Preliminary NO GROWTH AFTER 24 HOURS Active Medications - Current Medications Current Medications: Generic Name Dose Route Start Last Admin Trade Name Freq PRN Reason Stop Dose Admin Acetaminophen 650 mg 03/30/21 12:57 Acetaminophen 325 Mg Tab PO Q4H PRN Pain MILD(1-3)/Fever >100.5/NAVARRO Albuterol 2 puff 03/30/21 08:00 03/30/21 21:30 Albuterol 8.5 Gm Mdi Inhalation IH Not Given QIDRT [facility] Alprazolam 0.25 mg 03/30/21 11:51 03/31/21 12:21 Alprazolam 0.5 Mg Tab PO 0.25 mg Q12H PRN Administration Anxiety Heparin Sodium (Porcine) 5,000 unit 03/30/21 06:00 03/31/21 07:00 Heparin 5,000 Unit/1 Ml Vial SUB-Q 5,000 unit Q8HR [facility] Administration Hydralazine HCl 50 mg 03/30/21 12:00 03/31/21 08:59 Hydralazine 25 Mg Tab PO 50 mg TID LU Administration Hydromorphone HCl 0.25 mg 03/30/21 12:57 Hydromorphone 1 Mg/1 Ml Inj IV Q6H PRN Pain, Moderate (4-6) Hydroxyzine Pamoate 25 mg 03/31/21 22:00 Hydroxyzine Pamoate 25 Mg Cap PO HS PRN Sleep Sodium Chloride 1,000 mls @ 75 mls/hr 03/29/21 23:45 Nacl 0.9% 1000 Ml IV DIRECT [facility] Levofloxacin 750 mg 03/31/21 22:00 Levofloxacin 750 Mg Tab PO Q24H [facility] Protocol Lisinopril 40 mg 03/30/21 12:00 03/31/21 08:59 Lisinopril 20 Mg Tab PO 40 mg QDAY [facility] Administration Magnesium Hydroxide 30 ml 03/29/21 23:34 Magnesium Hydroxide (Mom) Oral Liqd Udc PO Q4H PRN Constipation Metoprolol Tartrate 25 mg 03/31/21 12:00 03/31/21 12:44 Metoprolol Tartrate 25 Mg Tab PO 25 mg BID LU Administration Ondansetron HCl 4 mg 03/29/21 23:34 Ondansetron 4 Mg/2 Ml Inj IV Q8H PRN Nausea And Vomiting Oxycodone/Acetaminophen 1 tab 03/30/21 11:22 03/31/21 08:59 Oxycodone /Acetaminophen 5-325mg Tab PO 1 tab Q6H PRN Administration Pain, Moderate (4-6) Sodium Chloride 10 ml 03/30/21 10:00 03/30/21 22:00 Sodium Chloride 0.9% 10 Ml Flush Syringe IV 10 ml BID LU Administration Sodium Chloride 10 ml 03/29/21 23:34 Sodium Chloride 0.9% 10 Ml Flush Syringe IV PRN PRN LINE FLUSH
[2021-03-31] MEDS ORDERED: IBUPROFEN 600 MG TAB PO PRN (15:00)
[2021-03-31] MEDS: LORazepam 1 MG TAB PO PRN (15:20)
--- NOTE | 2021-03-31 17:07 | Consultation ---
History of Present Illness - Reason for Consult Consult date: 03/31/21 - History of Present Illness 65-year-old female past medical history asthma, COPD presented to hospital from a mental health facility due to shortness of breath. Reportedly symptoms began earlier that day, she was found to be hypoxic upon EMS presentation. She was put on 4 L oxygen. Afebrile since admission with tachycardia. Normal white count. Covid negative. Currently on Levaquin. Blood cultures no growth so far. On 6 L nasal cannula. Imaging personally reviewed: Chest x-ray: Bilateral pneumonia Review of Systems: Bold if positive, otherwise negative General: fevers, chills, rigors HEENT: visual disturbance, diplopia, eye pain Respiratory: cough, sputum, hemoptysis, shortness of breath Cardiovascular: chest pain, syncope Gastrointestinal: nausea, vomiting, diarrhea, abdominal pain Genitourinary: dysuria, hematuria, flank pain Musculoskeletal: neck pain, back pain, joint pain, edema Neurologic: headaches, seizures Hematologic: easy bruising or bleeding Endocrine: night sweats, acute weight loss Skin: rash, jaundice, redness Psychiatric: suicidal, homicidal ideation Past History Past Medical History: COPD, hypertension, other (Depression,: Diverticulosis, ulcerative colitis, asthma) Past Surgical History: No surgical history Social history: no significant social history Family history: no significant family history Medications and Allergies Allergies Allergy/AdvReac Type Severity Reaction Status Date / Time codeine Allergy Unknown Verified 03/13/21 14:00 steroids AdvReac Shortness Uncoded 03/13/21 14:00 of Breath Home Medications Medication Instructions Recorded Confirmed Last Taken Type Albuterol Sulfate [Proventil Hfa] 2 puff IH 4XD #1 inh 03/13/21 03/30/21 Unknown Rx hydrOXYzine PAMOATE [Vistaril] 25 mg PO HS PRN #20 cap 03/13/21 03/30/21 Unknown Rx Active Meds: Active Medications Acetaminophen (Acetaminophen 325 Mg Tab) 650 mg PO Q4H PRN PRN Reason: Pain MILD(1-3)/Fever >100.5/NAVARRO Albuterol (Albuterol 8.5 Gm Mdi Inhalation) 2 puff IH QIDRT LU Last Admin: 03/30/21 21:30 Dose: Not Given Heparin Sodium (Porcine) (Heparin 5,000 Unit/1 Ml Vial) 5,000 unit SUB-Q Q8HR [facility] Last Admin: 03/31/21 15:04 Dose: Not Given Hydralazine HCl (Hydralazine 25 Mg Tab) 50 mg PO TID [facility] Last Admin: 03/31/21 14:58 Dose: 50 mg Hydromorphone HCl (Hydromorphone 1 Mg/1 Ml Inj) 0.25 mg IV Q6H PRN PRN Reason: Pain, Moderate (4-6) Hydroxyzine Pamoate (Hydroxyzine Pamoate 25 Mg Cap) 25 mg PO HS PRN PRN Reason: Sleep Sodium Chloride (Nacl 0.9% 1000 Ml) 1,000 mls @ 75 mls/hr IV DIRECT LU Ibuprofen (Ibuprofen 600 Mg Tab) 600 mg PO Q6H PRN PRN Reason: Pain, Mild (1-3) Levofloxacin (Levofloxacin 750 Mg Tab) 750 mg PO Q24H [facility]; Protocol Lisinopril (Lisinopril 20 Mg Tab) 40 mg PO QDAY [facility] Last Admin: 03/31/21 08:59 Dose: 40 mg Lorazepam (Lorazepam 1 Mg Tab) 1 mg PO Q6H PRN PRN Reason: Anxiety Last Admin: 03/31/21 15:20 Dose: 1 mg Magnesium Hydroxide (Magnesium Hydroxide (Mom) Oral Liqd Udc) 30 ml PO Q4H PRN PRN Reason: Constipation Metoprolol Tartrate (Metoprolol Tartrate 25 Mg Tab) 25 mg PO BID [facility] Last Admin: 03/31/21 12:44 Dose: 25 mg Ondansetron HCl (Ondansetron 4 Mg/2 Ml Inj) 4 mg IV Q8H PRN PRN Reason: Nausea And Vomiting Oxycodone/Acetaminophen (Oxycodone /Acetaminophen 5-325mg Tab) 1 tab PO Q6H PRN PRN Reason: Pain, Moderate (4-6) Last Admin: 03/31/21 14:57 Dose: 1 tab Sodium Chloride (Sodium Chloride 0.9% 10 Ml Flush Syringe) 10 ml IV BID [facility] Last Admin: 03/30/21 22:00 Dose: 10 ml Sodium Chloride (Sodium Chloride 0.9% 10 Ml Flush Syringe) 10 ml IV PRN PRN PRN Reason: LINE FLUSH Physical Examination - Physical Exam Narrative exam: Physical Exam: Constitutional: Alert, cooperative. No acute distress Head, Ears, Nose: Normocephalic, atraumatic. External ears, nose normal Eyes: Conjunctivae/corneas clear. No icterus. No ptosis. Neck: Supple, no meningeal signs Oral: dentition fair, no thrush Cardiovascular: S1, S2 normal. Respiratory: Good air entry, clear to auscultation bilaterally GI: Soft, non-tender; bowel sounds normal. No peritoneal signs. Musculoskeletal: No pedal edema, no cyanosis. Skin: No rash or abscess Hem/Lymphatic: No palpable cervical or supraclavicular nodes. No lymphangitis Psych: Mood ok. Affect normal Neurological: Awake, alert, oriented. No gross abnormality - Constitutional Vitals: Vital Signs Temp Pulse Resp BP Pulse Ox 98.4 F 106 H 22 183/93 85 03/31/21 08:23 03/31/21 08:23 03/31/21 08:23 03/31/21 08:23 03/31/21 08:23 Temperature -Last 24 Hours Temperature 98.4 F Temperature 98.5 F Temperature 98.5 F Results - Labs CBC & Chem 7: 03/30/21 04:28 03/30/21 04:28 Assessment and Plan Cultures: Blood culture no growth so far COVID-19 negative A/P: 65-year-old female past medical history asthma, COPD now with #Acute hypoxic respiratory failure, currently on 6 L nasal cannula. Secondary to bilateral pneumonia #Bilateral pneumonia: Covid negative. Pending procalcitonin. #COPD exacerbation Recs: -Continue Levaquin to complete 5 days if procalcitonin elevated. -Follow-up procalcitonin -Follow-up blood cultures Thank you for the consult, we will continue to follow. Brandy Torres MD [facility] ([facility] O: [phone] F: [phone]
[2021-03-31] MEDS ORDERED: hydrALAZINE 20 MG/1 ML INJ IV PRN (18:20)
[2021-03-31] MEDS: levoFLOXacin 750 MG TAB PO SCH (21:52)
[2021-03-31] MEDS: NICOTINE 7 MG/24 HR PATCH TD SCH (21:55)
[2021-03-31] MEDS ORDERED: hydrOXYzine PAMOATE 25 MG CAP PO PRN (22:00)
[2021-04-01] MEDS: LORazepam 1 MG TAB PO PRN (00:09)
[2021-04-01] MEDS: oxyCODONE /ACETAMINOPHEN 5-325MG TAB PO PRN (00:09)
[2021-04-01] MEDS: HEPARIN 5,000 UNIT/1 ML VIAL SUB-Q SCH ×4 (06:22→22:21)
[2021-04-01] MEDS: ALBUTEROL 8.5 GM MDI INHALATION IH SCH ×4 (08:58→21:08)
[2021-04-01] MEDS: hydrALAZINE 25 MG TAB PO SCH ×3 (09:00→22:25)
[2021-04-01] MEDS: METOPROLOL TARTRATE 25 MG TAB PO SCH ×2 (10:54→22:24)
[2021-04-01] MEDS: NICOTINE 7 MG/24 HR PATCH TD SCH (11:35)
[2021-04-01] MEDS: LISINOPRIL 20 MG TAB PO SCH (11:55)
--- NOTE | 2021-04-01 21:02 | Progress Note ---
Assessment and Plan Assessment and plan: #Acute respiratory failure with hypoxia -Possibly secondary to the underlying pneumonia. -currently on15 lt NC, no oxygen at home; will wean as tolerated -will keep O2 saturation greater or equal to 92% -continue steroids and abx for now -given symptoms concerning for CHF and elevated BNP TTE ordered #Bilateral pneumonia Patient started on empiric IV antibiotics. -COVID-19 PCR pending -ID consulted, assistance appreciated #Acute hypokalemia -improved after supplementation -will continue to replete and monitor #Hypertension -restarted hydralazine and lisinopril at home doses #History of COPD -stable -not on any inhalers at the moment -PRN nebulizing treatments #Tobacco dependence -currently smoking 1/2 ppd -smoking cessation counseling, supportive care, behavior change counseling, +15 minutes. #History of chronic pain -per patient -will provide PRN pain control History Interval history: I have seen and examined the patient at the bedside Patient's chart and medications reviewed no new events reported by the nursing staff Patient is severely hypoxemic requiring 15 L of nasal cannula oxygen Hospitalist Physical - Constitutional Vitals: Temp Pulse Resp BP Pulse Ox 97.9 F 103 H 20 179/80 91 04/01/21 16:35 04/01/21 16:35 04/01/21 16:35 04/01/21 16:35 04/01/21 16:35 General appearance: Present: no acute distress, well-nourished - EENT Eyes: Present: PERRL, EOM intact - Neck Neck: Present: supple, normal ROM - Respiratory Respiratory effort: normal Respiratory: bilateral: diminished, rhonchi, negative: rales, wheezing - Cardiovascular Rhythm: regular Heart Sounds: Present: S1 & S2 - Extremities Extremities: no ischemia, No edema - Abdominal General gastrointestinal: soft, non-tender, non-distended, normal bowel sounds - Integumentary Integumentary: Present: clear, warm - Psychiatric Psychiatric: appropriate mood/affect, cooperative - Neurologic Neurologic: moves all extremities HEART Score - HEART Score Troponin: Troponin T < 0.010 ng/mL (0.00-0.029) 03/29/21 20:27 Results - Labs CBC & Chem 7: 03/30/21 04:28 03/30/21 04:28 Labs: Laboratory Last Values WBC 5.8 K/mm3 (4.5-11.0) 03/30/21 04:28 RBC 3.23 M/mm3 (3.65-5.03) L 03/30/21 04:28 Hgb 10.2 gm/dl (10.1-14.3) 03/30/21 04:28 Hct 30.3 % (30.3-42.9) 03/30/21 04:28 MCV 94 fl (79-97) 03/30/21 04:28 MCH 31 pg (28-32) 03/30/21 04:28 MCHC 34 % (30-34) 03/30/21 04:28 RDW 15.3 % (13.2-15.2) H 03/30/21 04:28 Plt Count 224 K/mm3 (140-440) 03/30/21 04:28 Lymph % (Auto) 13.0 % (13.4-35.0) L 03/29/21 20: [place] % (Auto) 9.6 % (0.0-7.3) H 03/29/21 20: Eos % (Auto) 0.4 % (0.0-4.3) 03/29/21 20: Baso % (Auto) 0.8 % (0.0-1.8) 03/29/21 20: Lymph # (Auto) 1.1 K/mm3 (1.2-5.4) L 03/29/21 20: [place] # (Auto) 0.8 K/mm3 (0.0-0.8) 03/29/21 20: Eos # (Auto) 0.0 K/mm3 (0.0-0.4) 03/29/21 20: Baso # (Auto) 0.1 K/mm3 (0.0-0.1) 03/29/21 20: Add Manual Diff Complete 03/30/21 04:28 Total Counted 100 03/30/21 04:28 Seg Neutrophils % Graphic Illustrator 03/30/21 04:28 Seg Neuts % (Manual) 95.0 % (40.0-70.0) H 03/30/21 04:28 Band Neutrophils % 1.0 % 03/30/21 04:28 Lymphocytes % (Manual) 4.0 % (13.4-35.0) L 03/30/21 04:28 Reactive Lymphs % (Man) 0 % 03/30/21 04:28 Monocytes % (Manual) 0 % (0.0-7.3) 03/30/21 04:28 Eosinophils % (Manual) 0 % (0.0-4.3) 03/30/21 04:28 Basophils % (Manual) 0 % (0.0-1.8) 03/30/21 04:28 Metamyelocytes % 0 % 03/30/21 04:28 Myelocytes % 0 % 03/30/21 04:28 Promyelocytes % 0 % 03/30/21 04:28 Blast Cells % 0 % 03/30/21 04:28 Nucleated RBC % Not Reportable 03/30/21 04:28 Seg Neutrophils # 6.4 K/mm3 (1.8-7.7) 03/29/21 20:27 Seg Neutrophils # Man 5.5 K/mm3 (1.8-7.7) 03/30/21 04:28 Band Neutrophils # 0.1 K/mm3 03/30/21 04:28 Lymphocytes # (Manual) 0.2 K/mm3 (1.2-5.4) L 03/30/21 04:28 Abs React Lymphs (Man) 0.0 K/mm3 03/30/21 04:28 Monocytes # (Manual) 0.0 K/mm3 (0.0-0.8) 03/30/21 04:28 Eosinophils # (Manual) 0.0 K/mm3 (0.0-0.4) 03/30/21 04:28 Basophils # (Manual) 0.0 K/mm3 (0.0-0.1) 03/30/21 04:28 Metamyelocytes # 0.0 K/mm3 03/30/21 04:28 Myelocytes # 0.0 K/mm3 03/30/21 04:28 Promyelocytes # 0.0 K/mm3 03/30/21 04:28 Blast Cells # 0.0 K/mm3 03/30/21 04:28 WBC Morphology Not Reportable 03/30/21 04:28 Hypersegmented Neuts Not Reportable 03/30/21 04:28 Hyposegmented Neuts Not Reportable 03/30/21 04:28 Hypogranular Neuts Not Reportable 03/30/21 04:28 Smudge Cells Not Reportable 03/30/21 04:28 Toxic Granulation Not Reportable 03/30/21 04:28 Toxic Vacuolation Not Reportable 03/30/21 04:28 Dohle Bodies Not Reportable 03/30/21 04:28 Pelger-Huet Anomaly Not Reportable 03/30/21 04:28 Meena Rods Not Reportable 03/30/21 04:28 Platelet Estimate Consistent w auto 03/30/21 04:28 Clumped Platelets Not Reportable 03/30/21 04:28 Plt Clumps, EDTA Not Reportable 03/30/21 04:28 Large Platelets Not Reportable 03/30/21 04:28 Giant Platelets Not Reportable 03/30/21 04:28 Platelet Satelliting Not Reportable 03/30/21 04:28 Plt Morphology Comment Not Reportable 03/30/21 04:28 RBC Morphology Not Reportable 03/30/21 04:28 Dimorphic RBCs Not Reportable 03/30/21 04:28 Polychromasia Few 03/30/21 04:28 Hypochromasia Few 03/30/21 04:28 Poikilocytosis Not Reportable 03/30/21 04:28 Anisocytosis Few 03/30/21 04:28 Microcytosis Not Reportable 03/30/21 04:28 Macrocytosis Not Reportable 03/30/21 04:28 Spherocytes Not Reportable 03/30/21 04:28 Pappenheimer Bodies Not Reportable 03/30/21 04:28 Sickle Cells Not Reportable 03/30/21 04:28 Target Cells Not Reportable 03/30/21 04:28 Tear Drop Cells Not Reportable 03/30/21 04:28 Ovalocytes Not Reportable 03/30/21 04:28 Helmet Cells Not Reportable 03/30/21 04:28 [place] Bodies Not Reportable 03/30/21 04:28 [place] Rings Not Reportable 03/30/21 04:28 [place] Cells Not Reportable 03/30/21 04:28 Bite Cells Not Reportable 03/30/21 04:28 Crenated Cell Not Reportable 03/30/21 04:28 Elliptocytes Not Reportable 03/30/21 04:28 Acanthocytes (Spur) Not Reportable 03/30/21 04:28 Rouleaux Not Reportable 03/30/21 04:28 Hemoglobin C Crystals Not Reportable 03/30/21 04:28 Schistocytes Not Reportable 03/30/21 04:28 Malaria parasites Not Reportable 03/30/21 04:28 Ramesh Bodies Not Reportable 03/30/21 04:28 Hem Pathologist Commnt No 03/30/21 04:28 PT 14.0 Sec. (12.2-14.9) 03/29/21 20:27 INR 0.97 (0.87-1.13) 03/29/21 20:27 APTT 31.4 Sec. (24.2-36.6) 03/29/21 20:27 Sodium 142 mmol/L (137-145) 03/30/21 04:28 Potassium 3.6 mmol/L (3.6-5.0) D 03/30/21 04:28 Chloride 101.3 mmol/L (98-107) 03/30/21 04:28 Carbon Dioxide 24 mmol/L (22-30) 03/30/21 04:28 Anion Gap 20 mmol/L 03/30/21 04:28 BUN 7 mg/dL (7-17) 03/30/21 04:28 Creatinine 0.5 mg/dL (0.6-1.2) L 03/30/21 04:28 Estimated GFR > 60 ml/min 03/30/21 04:28 BUN/Creatinine Ratio 14 % 03/30/21 04:28 Glucose 203 mg/dL (65-100) H 03/30/21 04:28 Lactic Acid 1.30 mmol/L (0.7-2.0) 03/29/21 20:27 Calcium 9.0 mg/dL (8.4-10.2) 03/30/21 04:28 Troponin T < 0.010 ng/mL (0.00-0.029) 03/29/21 20:27 NT-Pro-B Natriuret Pep 3058 pg/mL (0-900) H 03/29/21 20:27 Procalcitonin 0.13 ng/mL (<0.15) 04/01/21 06:48 Coronavirus (PCR) Negative (Negative) 03/30/21 10:00 Microbiology: Microbiology 03/29/21 20:34 Peripheral/Venous Blood Culture - Preliminary NO GROWTH AFTER 48 HOURS 03/29/21 20:27 Peripheral/Venous Blood Culture - Preliminary NO GROWTH AFTER 48 HOURS Pham/IV: Voiding Method Bedside Commode Active Medications - Current Medications Current Medications: Generic Name Dose Route Start Last Admin Trade Name Freq PRN Reason Stop Dose Admin Acetaminophen 650 mg 03/30/21 12:57 Acetaminophen 325 Mg Tab PO Q4H PRN Pain MILD(1-3)/Fever >100.5/NAVARRO Albuterol 2 puff 03/30/21 08:00 04/01/21 16:00 Albuterol 8.5 Gm Mdi Inhalation IH 2 puff QIDRT LU Administration Heparin Sodium (Porcine) 5,000 unit 03/30/21 06:00 04/01/21 13:50 Heparin 5,000 Unit/1 Ml Vial SUB-Q 5,000 unit Q8HR LU Administration Hydralazine HCl 50 mg 03/30/21 12:00 04/01/21 13:50 Hydralazine 25 Mg Tab PO 50 mg TID LU Administration Hydralazine HCl 10 mg 03/31/21 18:20 Hydralazine 20 Mg/1 Ml Inj IV Q6HR PRN Hypertension Hydromorphone HCl 0.25 mg 03/30/21 12:57 04/01/21 13:30 Hydromorphone 1 Mg/1 Ml Inj IV 0.25 mg Q6H PRN Administration Pain, Moderate (4-6) Hydroxyzine Pamoate 25 mg 03/31/21 22:00 Hydroxyzine Pamoate 25 Mg Cap PO HS PRN Sleep Sodium Chloride 1,000 mls @ 75 mls/hr 03/29/21 23:45 Nacl 0.9% 1000 Ml IV DIRECT LU Ibuprofen 600 mg 03/31/21 15:00 Ibuprofen 600 Mg Tab PO Q6H PRN Pain, Mild (1-3) Levofloxacin 750 mg 03/31/21 22:00 03/31/21 21:52 Levofloxacin 750 Mg Tab PO 04/02/21 22:01 750 mg Q24H LU Administration Protocol Lisinopril 40 mg 03/30/21 12:00 04/01/21 11:55 Lisinopril 20 Mg Tab PO 40 mg QDAY LU Administration Lorazepam 1 mg 03/31/21 15:00 04/01/21 00:09 Lorazepam 1 Mg Tab PO 1 mg Q6H PRN Administration Anxiety Magnesium Hydroxide 30 ml 02/19/22 23:34 Magnesium Hydroxide (Mom) Oral Liqd Udc PO Q4H PRN Constipation Metoprolol Tartrate 25 mg 03/31/21 12:00 04/01/21 10:54 Metoprolol Tartrate 25 Mg Tab PO 25 mg BID LU Administration Nicotine 7 mg 03/31/21 20:00 04/01/21 11:35 Nicotine 7 Mg/24 Hr Patch TD 7 mg QDAY LU Administration Ondansetron HCl 4 mg 03/29/21 23:34 Ondansetron 4 Mg/2 Ml Inj IV Q8H PRN Nausea And Vomiting Oxycodone/Acetaminophen 1 tab 03/30/21 11:22 04/01/21 00:09 Oxycodone /Acetaminophen 5-325mg Tab PO 1 tab Q6H PRN Administration Pain, Moderate (4-6) Sodium Chloride 10 ml 03/30/21 10:00 04/01/21 10:54 Sodium Chloride 0.9% 10 Ml Flush Syringe IV 10 ml BID LU Administration Sodium Chloride 10 ml 03/29/21 23:34 Sodium Chloride 0.9% 10 Ml Flush Syringe IV PRN PRN LINE FLUSH
[2021-04-01] MEDS: levoFLOXacin 750 MG TAB PO SCH (22:24)
[2021-04-02] MEDS: oxyCODONE /ACETAMINOPHEN 5-325MG TAB PO PRN ×3 (00:18→21:11)
[2021-04-02] MEDS: LORazepam 1 MG TAB PO PRN ×3 (00:19→21:01)
[2021-04-02] MEDS: HEPARIN 5,000 UNIT/1 ML VIAL SUB-Q SCH ×3 (06:15→21:01)
[2021-04-02] MEDS: ALBUTEROL 8.5 GM MDI INHALATION IH SCH ×4 (09:03→22:45)
--- NOTE | 2021-04-02 09:34 | Progress Note ---
Assessment and Plan Assessment and plan: --Bilateral pneumonia; Patient received 3 doses empiric antibiotic Levaquin Procalcitonin level normal range antibiotics discontinued Cultures negative to date, ID following --COVID-19; PCR negative --Acute respiratory failure with hypoxia -Possibly secondary to the underlying pneumonia and COPD Patient was on 15 L of nasal cannula oxygen, titrated down to 10 L today Wean as tolerated, maintain O2 sats above 90% Home O2 evaluation prior to discharge --Possible acute diastolic CHF Elevated BNP /shortness of breath Echocardiogram EF 50% Gentle diuresis with IV Lasix and supportive care --Acute hypokalemia improved after supplementation will continue to replete and monitor --Hypertension restarted hydralazine and lisinopril at home doses --History of COPD Oxygen titrate O2 sats to more than 90%, nebulizers Supportive care, home O2 evaluation at discharge --Tobacco dependence currently smoking 1/2 ppd smoking cessation counseling, supportive care, behavior change counseling, +15 minutes. --History of chronic pain -per patient -will provide PRN pain control Closely monitor the patient and adjust management as needed Consults and recommendations noted and appreciated possible discharge in 1 to 2 days if stable Plan of care reviewed with the patient and her nurse I also discussed the discharge planning with case management History Interval history: I have seen and examined the patient at the bedside this morning Patient's chart and medications reviewed No new events reported by the nursing Patient is on 10 L of nasal cannula oxygen in mild distress Vital signs noted Hospitalist Physical - Constitutional Vitals: Temp Pulse Resp BP Pulse Ox 98.0 F 93 H 17 148/69 91 04/02/21 04:57 04/02/21 08:00 04/02/21 08:00 04/02/21 04:57 04/02/21 09:04 General appearance: Present: no acute distress, well-nourished - EENT Eyes: Present: PERRL, EOM intact - Neck Neck: Present: supple, normal ROM - Respiratory Respiratory effort: normal Respiratory: bilateral: diminished, rales, negative: rhonchi, wheezing - Cardiovascular Rhythm: regular Heart Sounds: Present: S1 & S2 - Extremities Extremities: no ischemia, No edema - Abdominal General gastrointestinal: soft, non-tender, non-distended, normal bowel sounds - Integumentary Integumentary: Present: clear, warm - Psychiatric Psychiatric: appropriate mood/affect, cooperative - Neurologic Neurologic: CNII-XII intact, moves all extremities HEART Score - HEART Score Troponin: Troponin T < 0.010 ng/mL (0.00-0.029) 03/29/21 20: Results - Labs CBC & Chem 7: 03/30/21 04:28 03/30/21 04:28 Labs: Laboratory Last Values WBC 5.8 K/mm3 (4.5-11.0) 03/30/21 04:28 RBC 3.23 M/mm3 (3.65-5.03) L 03/30/21 04:28 Hgb 10.2 gm/dl (10.1-14.3) 03/30/21 04:28 Hct 30.3 % (30.3-42.9) 03/30/21 04:28 MCV 94 fl (79-97) 03/30/21 04:28 MCH 31 pg (28-32) 03/30/21 04:28 MCHC 34 % (30-34) 03/30/21 04:28 RDW 15.3 % (13.2-15.2) H 03/30/21 04:28 Plt Count 224 K/mm3 (140-440) 03/30/21 04:28 Lymph % (Auto) 13.0 % (13.4-35.0) L 03/29/21 20: [place] % (Auto) 9.6 % (0.0-7.3) H 03/29/21 20: Eos % (Auto) 0.4 % (0.0-4.3) 03/29/21 20: Baso % (Auto) 0.8 % (0.0-1.8) 03/29/21 20: Lymph # (Auto) 1.1 K/mm3 (1.2-5.4) L 03/29/21 20: [place] # (Auto) 0.8 K/mm3 (0.0-0.8) 03/29/21 20: Eos # (Auto) 0.0 K/mm3 (0.0-0.4) 03/29/21 20: Baso # (Auto) 0.1 K/mm3 (0.0-0.1) 03/29/21 20: Add Manual Diff Complete 03/30/21 04:28 Total Counted 100 02/20/22 04:28 Seg Neutrophils % Sociology Professor 03/30/21 04:28 Seg Neuts % (Manual) 95.0 % (40.0-70.0) H 03/30/21 04:28 Band Neutrophils % 1.0 % 03/30/21 04:28 Lymphocytes % (Manual) 4.0 % (13.4-35.0) L 03/30/21 04:28 Reactive Lymphs % (Man) 0 % 03/30/21 04:28 Monocytes % (Manual) 0 % (0.0-7.3) 03/30/21 04:28 Eosinophils % (Manual) 0 % (0.0-4.3) 03/30/21 04:28 Basophils % (Manual) 0 % (0.0-1.8) 03/30/21 04:28 Metamyelocytes % 0 % 03/30/21 04:28 Myelocytes % 0 % 03/30/21 04:28 Promyelocytes % 0 % 03/30/21 04:28 Blast Cells % 0 % 03/30/21 04:28 Nucleated RBC % Not Reportable 03/30/21 04:28 Seg Neutrophils # 6.4 K/mm3 (1.8-7.7) 03/29/21 20:27 Seg Neutrophils # Man 5.5 K/mm3 (1.8-7.7) 03/30/21 04:28 Band Neutrophils # 0.1 K/mm3 03/30/21 04:28 Lymphocytes # (Manual) 0.2 K/mm3 (1.2-5.4) L 03/30/21 04:28 Abs React Lymphs (Man) 0.0 K/mm3 03/30/21 04:28 Monocytes # (Manual) 0.0 K/mm3 (0.0-0.8) 03/30/21 04:28 Eosinophils # (Manual) 0.0 K/mm3 (0.0-0.4) 03/30/21 04:28 Basophils # (Manual) 0.0 K/mm3 (0.0-0.1) 03/30/21 04:28 Metamyelocytes # 0.0 K/mm3 03/30/21 04:28 Myelocytes # 0.0 K/mm3 03/30/21 04:28 Promyelocytes # 0.0 K/mm3 03/30/21 04:28 Blast Cells # 0.0 K/mm3 03/30/21 04:28 WBC Morphology Not Reportable 03/30/21 04:28 Hypersegmented Neuts Not Reportable 03/30/21 04:28 Hyposegmented Neuts Not Reportable 03/30/21 04:28 Hypogranular Neuts Not Reportable 03/30/21 04:28 Smudge Cells Not Reportable 03/30/21 04:28 Toxic Granulation Not Reportable 03/30/21 04:28 Toxic Vacuolation Not Reportable 03/30/21 04:28 Dohle Bodies Not Reportable 03/30/21 04:28 Pelger-Huet Anomaly Not Reportable 03/30/21 04:28 Meena Rods Not Reportable 03/30/21 04:28 Platelet Estimate Consistent w auto 03/30/21 04:28 Clumped Platelets Not Reportable 03/30/21 04:28 Plt Clumps, EDTA Not Reportable 03/30/21 04:28 Large Platelets Not Reportable 03/30/21 04:28 Giant Platelets Not Reportable 03/30/21 04:28 Platelet Satelliting Not Reportable 03/30/21 04:28 Plt Morphology Comment Not Reportable 03/30/21 04:28 RBC Morphology Not Reportable 03/30/21 04:28 Dimorphic RBCs Not Reportable 03/30/21 04:28 Polychromasia Few 03/30/21 04:28 Hypochromasia Few 03/30/21 04:28 Poikilocytosis Not Reportable 03/30/21 04:28 Anisocytosis Few 03/30/21 04:28 Microcytosis Not Reportable 03/30/21 04:28 Macrocytosis Not Reportable 03/30/21 04:28 Spherocytes Not Reportable 03/30/21 04:28 Pappenheimer Bodies Not Reportable 03/30/21 04:28 Sickle Cells Not Reportable 03/30/21 04:28 Target Cells Not Reportable 03/30/21 04:28 Tear Drop Cells Not Reportable 03/30/21 04:28 Ovalocytes Not Reportable 03/30/21 04:28 Helmet Cells Not Reportable 03/30/21 04:28 [place] Bodies Not Reportable 03/30/21 04:28 [place] Rings Not Reportable 03/30/21 04:28 [place] Cells Not Reportable 03/30/21 04:28 Bite Cells Not Reportable 03/30/21 04:28 Crenated Cell Not Reportable 03/30/21 04:28 Elliptocytes Not Reportable 03/30/21 04:28 Acanthocytes (Spur) Not Reportable 03/30/21 04:28 Rouleaux Not Reportable 03/30/21 04:28 Hemoglobin C Crystals Not Reportable 03/30/21 04:28 Schistocytes Not Reportable 03/30/21 04:28 Malaria parasites Not Reportable 03/30/21 04:28 Ramesh Bodies Not Reportable 03/30/21 04:28 Hem Pathologist Commnt No 03/30/21 04:28 PT 14.0 Sec. (12.2-14.9) 03/29/21 20:27 INR 0.97 (0.87-1.13) 03/29/21 20: APTT 31.4 Sec. (24.2-36.6) 03/29/21 20:27 Sodium 142 mmol/L (137-145) 03/30/21 04:28 Potassium 3.6 mmol/L (3.6-5.0) D 03/30/21 04:28 Chloride 101.3 mmol/L (98-107) 03/30/21 04:28 Carbon Dioxide 24 mmol/L (22-30) 03/30/21 04:28 Anion Gap 20 mmol/L 03/30/21 04:28 BUN 7 mg/dL (7-17) 03/30/21 04:28 Creatinine 0.5 mg/dL (0.6-1.2) L 03/30/21 04:28 Estimated GFR > 60 ml/min 03/30/21 04:28 BUN/Creatinine Ratio 14 % 03/30/21 04:28 Glucose 203 mg/dL (65-100) H 03/30/21 04:28 Lactic Acid 1.30 mmol/L (0.7-2.0) 03/29/21 20:27 Calcium 9.0 mg/dL (8.4-10.2) 03/30/21 04:28 Troponin T < 0.010 ng/mL (0.00-0.029) 03/29/21 20:27 NT-Pro-B Natriuret Pep 3058 pg/mL (0-900) H 03/29/21 20:27 Procalcitonin 0.13 ng/mL (<0.15) 04/01/21 06:48 Coronavirus (PCR) Negative (Negative) 03/30/21 10:00 Microbiology: Microbiology 03/29/21 20:34 Peripheral/Venous Blood Culture - Preliminary NO GROWTH AFTER 72 HOURS 03/29/21 20:27 Peripheral/Venous Blood Culture - Preliminary NO GROWTH AFTER 72 HOURS Pham/IV: Voiding Method Bedside Commode Active Medications - Current Medications Current Medications: Generic Name Dose Route Start Last Admin Trade Name Freq PRN Reason Stop Dose Admin Acetaminophen 650 mg 03/30/21 12:57 Acetaminophen 325 Mg Tab PO Q4H PRN Pain MILD(1-3)/Fever >100.5/NAVARRO Albuterol 2 puff 03/30/21 08:00 04/02/21 09:03 Albuterol 8.5 Gm Mdi Inhalation IH 2 puff QIDRT LU Administration Heparin Sodium (Porcine) 5,000 unit 03/30/21 06:00 04/02/21 06:15 Heparin 5,000 Unit/1 Ml Vial SUB-Q 5,000 unit Q8HR LU Administration Hydralazine HCl 50 mg 03/30/21 12:00 04/01/21 22:25 Hydralazine 25 Mg Tab PO 50 mg TID LU Administration Hydralazine HCl 10 mg 03/31/21 18:20 Hydralazine 20 Mg/1 Ml Inj IV Q6HR PRN Hypertension Hydromorphone HCl 0.25 mg 03/30/21 12:57 04/01/21 13:30 Hydromorphone 1 Mg/1 Ml Inj IV 0.25 mg Q6H PRN Administration Pain, Moderate (4-6) Hydroxyzine Pamoate 25 mg 03/31/21 22:00 Hydroxyzine Pamoate 25 Mg Cap PO HS PRN Sleep Sodium Chloride 1,000 mls @ 75 mls/hr 03/29/21 23:45 Nacl 0.9% 1000 Ml IV DIRECT LU Ibuprofen 600 mg 03/31/21 15:00 Ibuprofen 600 Mg Tab PO Q6H PRN Pain, Mild (1-3) Labetalol HCl 10 mg 04/01/21 21:32 Labetalol 20 Mg/4 Ml Inj IV Q6H PRN Hypertension Lisinopril 40 mg 03/30/21 12:00 04/01/21 11:55 Lisinopril 20 Mg Tab PO 40 mg QDAY LU Administration Lorazepam 1 mg 03/31/21 15:00 04/02/21 00:19 Lorazepam 1 Mg Tab PO 1 mg Q6H PRN Administration Anxiety Magnesium Hydroxide 30 ml 03/29/21 23:34 Magnesium Hydroxide (Mom) Oral Liqd Udc PO Q4H PRN Constipation Metoprolol Tartrate 25 mg 03/31/21 12:00 04/01/21 22:24 Metoprolol Tartrate 25 Mg Tab PO 25 mg BID LU Administration Nicotine 7 mg 03/31/21 20:00 04/01/21 11:35 Nicotine 7 Mg/24 Hr Patch TD 7 mg QDAY LU Administration Ondansetron HCl 4 mg 03/29/21 23:34 Ondansetron 4 Mg/2 Ml Inj IV Q8H PRN Nausea And Vomiting Oxycodone/Acetaminophen 1 tab 03/30/21 11:22 04/02/21 00:18 Oxycodone /Acetaminophen 5-325mg Tab PO 1 tab Q6H PRN Administration Pain, Moderate (4-6) Sodium Chloride 10 ml 03/30/21 10:00 04/01/21 22:25 Sodium Chloride 0.9% 10 Ml Flush Syringe IV 10 ml BID LU Administration Sodium Chloride 10 ml 03/29/21 23:34 Sodium Chloride 0.9% 10 Ml Flush Syringe IV PRN PRN LINE FLUSH
[2021-04-02] MEDS: hydrALAZINE 25 MG TAB PO SCH ×3 (10:13→21:00)
[2021-04-02] MEDS: METOPROLOL TARTRATE 25 MG TAB PO SCH ×2 (10:13→21:01)
[2021-04-02] MEDS: LISINOPRIL 20 MG TAB PO SCH (10:13)
[2021-04-02] MEDS: NICOTINE 7 MG/24 HR PATCH TD SCH (10:13)
--- NOTE | 2021-04-02 17:15 | Electrocardiograph Report ---
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
--- NOTE | 2021-04-02 18:02 | Progress Note ---
Assessment and Plan Cultures: Blood culture no growth so far COVID-19 negative A/P: 65-year-old female past medical history asthma, COPD now with #Acute hypoxic respiratory failure, currently on 10 L nasal cannula. Secondary to bilateral pneumonia #Bilateral pneumonia: Covid negative. Procalcitonin normal. #COPD exacerbation Recs: -Continue Levaquin to complete 5 days if procalcitonin elevated. -procalcitonin not elevated, no need for antibiotics without fever or whtie count. -Follow-up blood cultures Thank you for the consult, we will sign off. Please call with questions. Brandy Torres MD [facility] O: [phone] F: [phone] Subjective Date of service: 04/02/21 Interval history: Afebrile, normal white count. On salter nasal cannula 10 L. Objective - Exam Narrative Exam: Physical Exam: Constitutional: Alert, cooperative. No acute distress Head, Ears, Nose: Normocephalic, atraumatic. External ears, nose normal Eyes: Conjunctivae/corneas clear. No icterus. No ptosis. Neck: Supple, no meningeal signs Oral: dentition fair, no thrush Cardiovascular: S1, S2 normal. Respiratory: Good air entry, clear to auscultation bilaterally GI: Soft, non-tender; bowel sounds normal. No peritoneal signs. Musculoskeletal: No pedal edema, no cyanosis. Skin: No rash or abscess Hem/Lymphatic: No palpable cervical or supraclavicular nodes. No lymphangitis Psych: Mood ok. Affect normal Neurological: Awake, alert, oriented. No gross abnormality - Constitutional Vitals: Vital Signs Temp Pulse Resp BP Pulse Ox 98.0 F 94 H 18 148/69 97 04/02/21 04:57 04/02/21 11:20 04/02/21 11:20 04/02/21 04:57 04/02/21 10:00 Temperature -Last 24 Hours Temperature 98.0 F Temperature 97.1 F - Labs CBC & Chem 7: 03/30/21 04:28 03/30/21 04:28
[2021-04-02] MEDS ORDERED: FUROSEMIDE 40 MG/4 ML INJ IV ONE (18:18)
[2021-04-03] MEDS: FUROSEMIDE 40 MG/4 ML INJ IV SCH ×2 (06:20→10:06)
[2021-04-03] MEDS: HEPARIN 5,000 UNIT/1 ML VIAL SUB-Q SCH ×3 (06:21→22:10)
[2021-04-03] MEDS ORDERED: FUROSEMIDE 40 MG/4 ML INJ IV SCH (10:00)
[2021-04-03] MEDS: METOPROLOL TARTRATE 25 MG TAB PO SCH ×2 (10:04→22:11)
[2021-04-03] MEDS: LORazepam 1 MG TAB PO PRN (10:04)
[2021-04-03] MEDS: LISINOPRIL 20 MG TAB PO SCH (10:04)
[2021-04-03] MEDS: hydrALAZINE 25 MG TAB PO SCH ×2 (10:04→14:59)
[2021-04-03] MEDS: NICOTINE 7 MG/24 HR PATCH TD SCH (10:05)
[2021-04-03] MEDS: ACETAMINOPHEN 325 MG TAB PO PRN (10:13)
[2021-04-03] MEDS: ALBUTEROL 8.5 GM MDI INHALATION IH SCH ×4 (10:49→21:01)
[2021-04-03] MEDS: oxyCODONE /ACETAMINOPHEN 5-325MG TAB PO PRN (14:59)
--- NOTE | 2021-04-03 19:53 | Progress Note ---
Assessment and Plan Assessment and plan: --Bilateral pneumonia; Patient received 3 doses empiric antibiotic Levaquin Procalcitonin level normal range antibiotics discontinued Cultures negative to date, ID following --COVID-19; PCR negative --Acute respiratory failure with hypoxia -Possibly secondary to the underlying pneumonia and COPD Patient was on 15 L of nasal cannula oxygen, titrated down to 10 L-8L today Wean as tolerated, maintain O2 sats above 90% Home O2 evaluation prior to discharge --Possible acute diastolic CHF Elevated BNP /shortness of breath Echocardiogram EF 50% Gentle diuresis with IV Lasix and supportive care --Acute hypokalemia improved after supplementation will continue to replete and monitor --Hypertension restarted hydralazine and lisinopril at home doses --History of COPD Oxygen titrate O2 sats to more than 90%, nebulizers Supportive care, home O2 evaluation at discharge --Tobacco dependence currently smoking 1/2 ppd smoking cessation counseling, supportive care, behavior change counseling, +15 minutes. --History of chronic pain per patient will provide PRN pain control Closely monitor the patient and adjust management as needed Consults and recommendations noted and appreciated possible discharge in 1 to 2 days if stable Plan of care reviewed with the patient and her nurse I also discussed the discharge planning with case management History Interval history: I have seen and examined the patient at the bedside this morning Patient's chart and medications reviewed patient's oxygen requirement is titrated down to 8 L today Patient is in mild distress Hospitalist Physical - Constitutional Vitals: Temp Pulse Resp BP Pulse Ox 98.0 F 86 16 151/62 94 04/03/21 19:35 04/03/21 19:35 04/03/21 19:35 04/03/21 19:35 04/03/21 19:35 General appearance: Present: mild distress, well-nourished, other - EENT Eyes: Present: PERRL, EOM intact - Neck Neck: Present: supple, normal ROM - Respiratory Respiratory effort: normal Respiratory: bilateral: diminished, rhonchi, negative: rales, wheezing - Cardiovascular Rhythm: regular Heart Sounds: Present: S1 & S2 - Extremities Extremities: no ischemia, No edema - Abdominal General gastrointestinal: soft, non-tender, non-distended, normal bowel sounds - Integumentary Integumentary: Present: clear, warm - Psychiatric Psychiatric: appropriate mood/affect, cooperative - Neurologic Neurologic: moves all extremities HEART Score - HEART Score Troponin: Troponin T < 0.010 ng/mL (0.00-0.029) 03/29/21 20: Results - Labs CBC & Chem 7: 03/30/21 04:28 03/30/21 04:28 Labs: Laboratory Last Values WBC 5.8 K/mm3 (4.5-11.0) 03/30/21 04:28 RBC 3.23 M/mm3 (3.65-5.03) L 03/30/21 04:28 Hgb 10.2 gm/dl (10.1-14.3) 03/30/21 04:28 Hct 30.3 % (30.3-42.9) 03/30/21 04:28 MCV 94 fl (79-97) 03/30/21 04:28 MCH 31 pg (28-32) 03/30/21 04:28 MCHC 34 % (30-34) 03/30/21 04:28 RDW 15.3 % (13.2-15.2) H 03/30/21 04:28 Plt Count 224 K/mm3 (140-440) 03/30/21 04:28 Lymph % (Auto) 13.0 % (13.4-35.0) L 03/29/21 20: [place] % (Auto) 9.6 % (0.0-7.3) H 03/29/21 20: Eos % (Auto) 0.4 % (0.0-4.3) 03/29/21 20: Baso % (Auto) 0.8 % (0.0-1.8) 03/29/21 20: Lymph # (Auto) 1.1 K/mm3 (1.2-5.4) L 03/29/21 20: [place] # (Auto) 0.8 K/mm3 (0.0-0.8) 03/29/21 20: Eos # (Auto) 0.0 K/mm3 (0.0-0.4) 03/29/21 20: Baso # (Auto) 0.1 K/mm3 (0.0-0.1) 03/29/21 20: Add Manual Diff Complete 03/30/21 04:28 Total Counted 100 03/30/21 04:28 Seg Neutrophils % [employer] 03/30/21 04:28 Seg Neuts % (Manual) 95.0 % (40.0-70.0) H 03/30/21 04:28 Band Neutrophils % 1.0 % 03/30/21 04:28 Lymphocytes % (Manual) 4.0 % (13.4-35.0) L 03/30/21 04:28 Reactive Lymphs % (Man) 0 % 03/30/21 04:28 Monocytes % (Manual) 0 % (0.0-7.3) 03/30/21 04:28 Eosinophils % (Manual) 0 % (0.0-4.3) 03/30/21 04:28 Basophils % (Manual) 0 % (0.0-1.8) 03/30/21 04:28 Metamyelocytes % 0 % 03/30/21 04:28 Myelocytes % 0 % 03/30/21 04:28 Promyelocytes % 0 % 03/30/21 04:28 Blast Cells % 0 % 03/30/21 04:28 Nucleated RBC % Not Reportable 03/30/21 04:28 Seg Neutrophils # 6.4 K/mm3 (1.8-7.7) 03/29/21 20:27 Seg Neutrophils # Man 5.5 K/mm3 (1.8-7.7) 03/30/21 04:28 Band Neutrophils # 0.1 K/mm3 03/30/21 04:28 Lymphocytes # (Manual) 0.2 K/mm3 (1.2-5.4) L 03/30/21 04:28 Abs React Lymphs (Man) 0.0 K/mm3 03/30/21 04:28 Monocytes # (Manual) 0.0 K/mm3 (0.0-0.8) 03/30/21 04:28 Eosinophils # (Manual) 0.0 K/mm3 (0.0-0.4) 03/30/21 04:28 Basophils # (Manual) 0.0 K/mm3 (0.0-0.1) 03/30/21 04:28 Metamyelocytes # 0.0 K/mm3 03/30/21 04:28 Myelocytes # 0.0 K/mm3 03/30/21 04:28 Promyelocytes # 0.0 K/mm3 03/30/21 04:28 Blast Cells # 0.0 K/mm3 03/30/21 04:28 WBC Morphology Not Reportable 03/30/21 04:28 Hypersegmented Neuts Not Reportable 03/30/21 04:28 Hyposegmented Neuts Not Reportable 03/30/21 04:28 Hypogranular Neuts Not Reportable 03/30/21 04:28 Smudge Cells Not Reportable 03/30/21 04:28 Toxic Granulation Not Reportable 03/30/21 04:28 Toxic Vacuolation Not Reportable 03/30/21 04:28 Dohle Bodies Not Reportable 03/30/21 04:28 Pelger-Huet Anomaly Not Reportable 03/30/21 04:28 Meena Rods Not Reportable 03/30/21 04:28 Platelet Estimate Consistent w auto 03/30/21 04:28 Clumped Platelets Not Reportable 03/30/21 04:28 Plt Clumps, EDTA Not Reportable 03/30/21 04:28 Large Platelets Not Reportable 03/30/21 04:28 Giant Platelets Not Reportable 03/30/21 04:28 Platelet Satelliting Not Reportable 03/30/21 04:28 Plt Morphology Comment Not Reportable 03/30/21 04:28 RBC Morphology Not Reportable 03/30/21 04:28 Dimorphic RBCs Not Reportable 03/30/21 04:28 Polychromasia Few 03/30/21 04:28 Hypochromasia Few 03/30/21 04:28 Poikilocytosis Not Reportable 03/30/21 04:28 Anisocytosis Few 03/30/21 04:28 Microcytosis Not Reportable 03/30/21 04:28 Macrocytosis Not Reportable 03/30/21 04:28 Spherocytes Not Reportable 03/30/21 04:28 Pappenheimer Bodies Not Reportable 03/30/21 04:28 Sickle Cells Not Reportable 03/30/21 04:28 Target Cells Not Reportable 03/30/21 04:28 Tear Drop Cells Not Reportable 03/30/21 04:28 Ovalocytes Not Reportable 03/30/21 04:28 Helmet Cells Not Reportable 03/30/21 04:28 [place] Bodies Not Reportable 03/30/21 04:28 [place] Rings Not Reportable 03/30/21 04:28 Magalie Cells Not Reportable 03/30/21 04:28 Bite Cells Not Reportable 03/30/21 04:28 Crenated Cell Not Reportable 03/30/21 04:28 Elliptocytes Not Reportable 03/30/21 04:28 Acanthocytes (Spur) Not Reportable 03/30/21 04:28 Rouleaux Not Reportable 03/30/21 04:28 Hemoglobin C Crystals Not Reportable 03/30/21 04:28 Schistocytes Not Reportable 03/30/21 04:28 Malaria parasites Not Reportable 03/30/21 04:28 Ramesh Bodies Not Reportable 03/30/21 04:28 Hem Pathologist Commnt No 03/30/21 04:28 PT 14.0 Sec. (12.2-14.9) 03/29/21 20: INR 0.97 (0.87-1.13) 03/29/21 20: APTT 31.4 Sec. (24.2-36.6) 03/29/21 20:27 Sodium 142 mmol/L (137-145) 03/30/21 04:28 Potassium 3.6 mmol/L (3.6-5.0) D 03/30/21 04:28 Chloride 101.3 mmol/L (98-107) 03/30/21 04:28 Carbon Dioxide 24 mmol/L (22-30) 03/30/21 04:28 Anion Gap 20 mmol/L 03/30/21 04:28 BUN 7 mg/dL (7-17) 03/30/21 04:28 Creatinine 0.5 mg/dL (0.6-1.2) L 03/30/21 04:28 Estimated GFR > 60 ml/min 03/30/21 04:28 BUN/Creatinine Ratio 14 % 03/30/21 04:28 Glucose 203 mg/dL (65-100) H 03/30/21 04:28 Lactic Acid 1.30 mmol/L (0.7-2.0) 03/29/21 20:27 Calcium 9.0 mg/dL (8.4-10.2) 03/30/21 04:28 Troponin T < 0.010 ng/mL (0.00-0.029) 03/29/21 20:27 NT-Pro-B Natriuret Pep 3058 pg/mL (0-900) H 03/29/21 20:27 Procalcitonin 0.13 ng/mL (<0.15) 04/01/21 06:48 Coronavirus (PCR) Negative (Negative) 03/30/21 10:00 Microbiology: Microbiology 04/01/21 06:30 Sputum - Expectorated Sputum Sputum Culture - Preliminary 03/29/21 20:34 Peripheral/Venous Blood Culture - Preliminary NO GROWTH AFTER 4 DAYS 03/29/21 20:27 Peripheral/Venous Blood Culture - Preliminary NO GROWTH AFTER 4 DAYS Pham/IV: Voiding Method Toilet Active Medications - Current Medications Current Medications: Generic Name Dose Route Start Last Admin Trade Name Freq PRN Reason Stop Dose Admin Acetaminophen 650 mg 03/30/21 12:57 04/03/21 10:13 Acetaminophen 325 Mg Tab PO 650 mg Q4H PRN Administration Pain MILD(1-3)/Fever >100.5/NAVARRO Albuterol 2 puff 03/30/21 08:00 04/03/21 15:44 Albuterol 8.5 Gm Mdi Inhalation IH 2 puff QIDRT LU Administration Furosemide 40 mg 04/03/21 07:00 04/03/21 10:06 Furosemide 40 Mg/4 Ml Inj IV Not Given QDAY [facility] Heparin Sodium (Porcine) 5,000 unit 03/30/21 06:00 04/03/21 15:02 Heparin 5,000 Unit/1 Ml Vial SUB-Q 5,000 unit Q8HR LU Administration Hydralazine HCl 50 mg 03/30/21 12:00 04/03/21 14:59 Hydralazine 25 Mg Tab PO 50 mg TID LU Administration Hydralazine HCl 10 mg 03/31/21 18:20 Hydralazine 20 Mg/1 Ml Inj IV Q6HR PRN Hypertension Hydromorphone HCl 0.25 mg 03/30/21 12:57 04/01/21 13:30 Hydromorphone 1 Mg/1 Ml Inj IV 0.25 mg Q6H PRN Administration Pain, Moderate (4-6) Hydroxyzine Pamoate 25 mg 03/31/21 22:00 Hydroxyzine Pamoate 25 Mg Cap PO HS PRN Sleep Sodium Chloride 1,000 mls @ 75 mls/hr 03/29/21 23:45 Nacl 0.9% 1000 Ml IV DIRECT LU Ibuprofen 600 mg 03/31/21 15:00 Ibuprofen 600 Mg Tab PO Q6H PRN Pain, Mild (1-3) Labetalol HCl 10 mg 04/01/21 21:32 Labetalol 20 Mg/4 Ml Inj IV Q6H PRN Hypertension Lisinopril 40 mg 03/30/21 12:00 04/03/21 10:04 Lisinopril 20 Mg Tab PO 40 mg QDAY LU Administration Lorazepam 1 mg 03/31/21 15:00 04/03/21 10:04 Lorazepam 1 Mg Tab PO 1 mg Q6H PRN Administration Anxiety Magnesium Hydroxide 30 ml 03/29/21 23:34 Magnesium Hydroxide (Mom) Oral Liqd Udc PO Q4H PRN Constipation Metoprolol Tartrate 25 mg 03/31/21 12:00 04/03/21 10:04 Metoprolol Tartrate 25 Mg Tab PO 25 mg BID LU Administration Nicotine 7 mg 03/31/21 20:00 04/03/21 10:05 Nicotine 7 Mg/24 Hr Patch TD 7 mg QDAY LU Administration Ondansetron HCl 4 mg 03/29/21 23:34 Ondansetron 4 Mg/2 Ml Inj IV Q8H PRN Nausea And Vomiting Oxycodone/Acetaminophen 1 tab 03/30/21 11:22 04/03/21 14:59 Oxycodone /Acetaminophen 5-325mg Tab PO 1 tab Q6H PRN Administration Pain, Moderate (4-6) Sodium Chloride 10 ml 03/30/21 10:00 04/03/21 10:06 Sodium Chloride 0.9% 10 Ml Flush Syringe IV 10 ml BID LU Administration Sodium Chloride 10 ml 03/29/21 23:34 Sodium Chloride 0.9% 10 Ml Flush Syringe IV PRN PRN LINE FLUSH
[2021-04-04] MEDS: oxyCODONE /ACETAMINOPHEN 5-325MG TAB PO PRN (04:10)
[2021-04-04] MEDS: hydrALAZINE 25 MG TAB PO SCH ×5 (04:12→23:22)
[2021-04-04] MEDS: HEPARIN 5,000 UNIT/1 ML VIAL SUB-Q SCH ×3 (08:39→22:00)
[2021-04-04] MEDS: LORazepam 1 MG TAB PO PRN (08:43)
[2021-04-04] MEDS: FUROSEMIDE 40 MG/4 ML INJ IV SCH (09:00)
[2021-04-04] MEDS: METOPROLOL TARTRATE 25 MG TAB PO SCH ×2 (09:01→22:00)
[2021-04-04] MEDS: LISINOPRIL 20 MG TAB PO SCH (09:01)
[2021-04-04] MEDS: NICOTINE 7 MG/24 HR PATCH TD SCH (09:04)
[2021-04-04] MEDS: ALBUTEROL 8.5 GM MDI INHALATION IH SCH ×2 (09:40→16:38)
--- NOTE | 2021-04-04 19:58 | Progress Note ---
Assessment and Plan Assessment and plan: --Acute respiratory failure with hypoxia -Possibly secondary to the underlying pneumonia and COPD Patient was on 15 L of nasal cannula oxygen, titrated down to 10 L-8L today Wean as tolerated, maintain O2 sats above 90% Home O2 evaluation prior to discharge --Bilateral pneumonia; Patient received 3 doses empiric antibiotic Levaquin Procalcitonin level normal range antibiotics discontinued Cultures negative to date, ID following --COVID-19; PCR negative --Possible acute diastolic CHF Elevated BNP /shortness of breath Echocardiogram EF 50% Gentle diuresis with IV Lasix and supportive care --Acute hypokalemia improved after supplementation will continue to replete and monitor --Hypertension restarted hydralazine and lisinopril at home doses --History of COPD Oxygen titrate O2 sats to more than 90%, nebulizers Supportive care, home O2 evaluation at discharge --Tobacco dependence currently smoking 1/2 ppd smoking cessation counseling, supportive care, behavior change counseling, +15 minutes. --History of chronic pain per patient will provide PRN pain control Closely monitor the patient and adjust management as needed Consults and recommendations noted and appreciated possible discharge in 1 to 2 days if stable Plan of care reviewed with the patient and her nurse I also discussed the discharge planning with case management 04/04; patient continues to be on 8 L nasal cannula oxygen Unable to wean, will get follow-up chest x-ray to monitor pneumonia Consider CT chest and pulmonary consult if no improvement History Interval history: I have seen and examined the patient at the bedside Patient's chart and medications reviewed Patient remains hypoxic requiring 8 L of nasal cannula oxygen Unable to wean No new events reported by the nursing Patient denies chest pain Hospitalist Physical - Constitutional Vitals: Temp Pulse Resp BP Pulse Ox 98.2 F 81 17 130/62 97 04/04/21 17:52 04/04/21 17:52 04/04/21 17:52 04/04/21 17:52 04/04/21 17:52 General appearance: Present: mild distress, well-nourished, other - EENT Eyes: Present: PERRL, EOM intact - Neck Neck: Present: supple, normal ROM - Respiratory Respiratory effort: normal Respiratory: bilateral: diminished, rhonchi, negative: rales, wheezing - Cardiovascular Rhythm: regular Heart Sounds: Present: S1 & S2 - Extremities Extremities: no ischemia, No edema - Abdominal General gastrointestinal: soft, non-tender, non-distended, normal bowel sounds - Integumentary Integumentary: Present: clear, warm - Psychiatric Psychiatric: appropriate mood/affect - Neurologic Neurologic: moves all extremities HEART Score - HEART Score Troponin: Troponin T < 0.010 ng/mL (0.00-0.029) 03/29/21 20:27 Results - Labs CBC & Chem 7: 03/30/21 04:28 03/30/21 04:28 Labs: Laboratory Last Values WBC 5.8 K/mm3 (4.5-11.0) 03/30/21 04:28 RBC 3.23 M/mm3 (3.65-5.03) L 03/30/21 04:28 Hgb 10.2 gm/dl (10.1-14.3) 03/30/21 04:28 Hct 30.3 % (30.3-42.9) 03/30/21 04:28 MCV 94 fl (79-97) 03/30/21 04:28 MCH 31 pg (28-32) 03/30/21 04:28 MCHC 34 % (30-34) 03/30/21 04:28 RDW 15.3 % (13.2-15.2) H 03/30/21 04:28 Plt Count 224 K/mm3 (140-440) 03/30/21 04:28 Lymph % (Auto) 13.0 % (13.4-35.0) L 03/29/21 20: [place] % (Auto) 9.6 % (0.0-7.3) H 03/29/21 20: Eos % (Auto) 0.4 % (0.0-4.3) 03/29/21 20: Baso % (Auto) 0.8 % (0.0-1.8) 03/29/21 20: Lymph # (Auto) 1.1 K/mm3 (1.2-5.4) L 03/29/21 20: [place] # (Auto) 0.8 K/mm3 (0.0-0.8) 03/29/21 20: Eos # (Auto) 0.0 K/mm3 (0.0-0.4) 03/29/21 20: Baso # (Auto) 0.1 K/mm3 (0.0-0.1) 03/29/21 20:27 Add Manual Diff Complete 03/30/21 04:28 Total Counted 100 03/30/21 04:28 Seg Neutrophils % [employer] 03/30/21 04:28 Seg Neuts % (Manual) 95.0 % (40.0-70.0) H 03/30/21 04:28 Band Neutrophils % 1.0 % 03/30/21 04:28 Lymphocytes % (Manual) 4.0 % (13.4-35.0) L 03/30/21 04:28 Reactive Lymphs % (Man) 0 % 03/30/21 04:28 Monocytes % (Manual) 0 % (0.0-7.3) 03/30/21 04:28 Eosinophils % (Manual) 0 % (0.0-4.3) 03/30/21 04:28 Basophils % (Manual) 0 % (0.0-1.8) 03/30/21 04:28 Metamyelocytes % 0 % 03/30/21 04:28 Myelocytes % 0 % 03/30/21 04:28 Promyelocytes % 0 % 03/30/21 04:28 Blast Cells % 0 % 03/30/21 04:28 Nucleated RBC % Not Reportable 03/30/21 04:28 Seg Neutrophils # 6.4 K/mm3 (1.8-7.7) 03/29/21 20:27 Seg Neutrophils # Man 5.5 K/mm3 (1.8-7.7) 03/30/21 04:28 Band Neutrophils # 0.1 K/mm3 03/30/21 04:28 Lymphocytes # (Manual) 0.2 K/mm3 (1.2-5.4) L 03/30/21 04:28 Abs React Lymphs (Man) 0.0 K/mm3 03/30/21 04:28 Monocytes # (Manual) 0.0 K/mm3 (0.0-0.8) 03/30/21 04:28 Eosinophils # (Manual) 0.0 K/mm3 (0.0-0.4) 03/30/21 04:28 Basophils # (Manual) 0.0 K/mm3 (0.0-0.1) 03/30/21 04:28 Metamyelocytes # 0.0 K/mm3 03/30/21 04:28 Myelocytes # 0.0 K/mm3 03/30/21 04:28 Promyelocytes # 0.0 K/mm3 03/30/21 04:28 Blast Cells # 0.0 K/mm3 03/30/21 04:28 WBC Morphology Not Reportable 03/30/21 04:28 Hypersegmented Neuts Not Reportable 03/30/21 04:28 Hyposegmented Neuts Not Reportable 03/30/21 04:28 Hypogranular Neuts Not Reportable 03/30/21 04:28 Smudge Cells Not Reportable 03/30/21 04:28 Toxic Granulation Not Reportable 03/30/21 04:28 Toxic Vacuolation Not Reportable 03/30/21 04:28 Dohle Bodies Not Reportable 03/30/21 04:28 Pelger-Huet Anomaly Not Reportable 03/30/21 04:28 Meena Rods Not Reportable 03/30/21 04:28 Platelet Estimate Consistent w auto 03/30/21 04:28 Clumped Platelets Not Reportable 03/30/21 04:28 Plt Clumps, EDTA Not Reportable 03/30/21 04:28 Large Platelets Not Reportable 03/30/21 04:28 Giant Platelets Not Reportable 03/30/21 04:28 Platelet Satelliting Not Reportable 03/30/21 04:28 Plt Morphology Comment Not Reportable 03/30/21 04:28 RBC Morphology Not Reportable 03/30/21 04:28 Dimorphic RBCs Not Reportable 03/30/21 04:28 Polychromasia Few 03/30/21 04:28 Hypochromasia Few 03/30/21 04:28 Poikilocytosis Not Reportable 03/30/21 04:28 Anisocytosis Few 03/30/21 04:28 Microcytosis Not Reportable 03/30/21 04:28 Macrocytosis Not Reportable 03/30/21 04:28 Spherocytes Not Reportable 03/30/21 04:28 Pappenheimer Bodies Not Reportable 03/30/21 04:28 Sickle Cells Not Reportable 03/30/21 04:28 Target Cells Not Reportable 03/30/21 04:28 Tear Drop Cells Not Reportable 03/30/21 04:28 Ovalocytes Not Reportable 03/30/21 04:28 Helmet Cells Not Reportable 03/30/21 04:28 Berme[place] Bodies Not Reportable 03/30/21 04:28 [place] Rings Not Reportable 03/30/21 04:28 Magalie Cells Not Reportable 03/30/21 04:28 Bite Cells Not Reportable 03/30/21 04:28 Crenated Cell Not Reportable 03/30/21 04:28 Elliptocytes Not Reportable 03/30/21 04:28 Acanthocytes (Spur) Not Reportable 03/30/21 04:28 Rouleaux Not Reportable 03/30/21 04:28 Hemoglobin C Crystals Not Reportable 03/30/21 04:28 Schistocytes Not Reportable 03/30/21 04:28 Malaria parasites Not Reportable 03/30/21 04:28 Ramesh Bodies Not Reportable 03/30/21 04:28 Hem Pathologist Commnt No 03/30/21 04:28 PT 14.0 Sec. (12.2-14.9) 03/29/21 20:27 INR 0.97 (0.87-1.13) 03/29/21 20:27 APTT 31.4 Sec. (24.2-36.6) 03/29/21 20:27 Sodium 142 mmol/L (137-145) 03/30/21 04:28 Potassium 3.6 mmol/L (3.6-5.0) D 03/30/21 04:28 Chloride 101.3 mmol/L (98-107) 03/30/21 04:28 Carbon Dioxide 24 mmol/L (22-30) 03/30/21 04:28 Anion Gap 20 mmol/L 03/30/21 04:28 BUN 7 mg/dL (7-17) 03/30/21 04:28 Creatinine 0.5 mg/dL (0.6-1.2) L 03/30/21 04:28 Estimated GFR > 60 ml/min 03/30/21 04:28 BUN/Creatinine Ratio 14 % 03/30/21 04:28 Glucose 203 mg/dL (65-100) H 03/30/21 04:28 Lactic Acid 1.30 mmol/L (0.7-2.0) 03/29/21 20:27 Calcium 9.0 mg/dL (8.4-10.2) 03/30/21 04:28 Troponin T < 0.010 ng/mL (0.00-0.029) 03/29/21 20:27 NT-Pro-B Natriuret Pep 3058 pg/mL (0-900) H 03/29/21 20:27 Procalcitonin 0.13 ng/mL (<0.15) 04/01/21 06:48 Coronavirus (PCR) Negative (Negative) 03/30/21 10:00 Microbiology: Microbiology 04/01/21 06:30 Sputum - Expectorated Sputum Sputum Culture - Final 03/29/21 20:34 Peripheral/Venous Blood Culture - Final NO GROWTH AFTER 5 DAYS 03/29/21 20:27 Peripheral/Venous Blood Culture - Final NO GROWTH AFTER 5 DAYS Pham/IV: Voiding Method Toilet Active Medications - Current Medications Current Medications: Generic Name Dose Route Start Last Admin Trade Name Freq PRN Reason Stop Dose Admin Acetaminophen 650 mg 03/30/21 12:57 04/03/21 10:13 Acetaminophen 325 Mg Tab PO 650 mg Q4H PRN Administration Pain MILD(1-3)/Fever >100.5/NAVARRO Albuterol 2 puff 04/04/21 08:00 04/04/21 16:38 Albuterol 8.5 Gm Mdi Inhalation IH 2 puff TIDRT LU Administration Furosemide 40 mg 04/03/21 07:00 04/04/21 09:00 Furosemide 40 Mg/4 Ml Inj IV 40 mg QDAY LU Administration Heparin Sodium (Porcine) 5,000 unit 03/30/21 06:00 04/04/21 14:10 Heparin 5,000 Unit/1 Ml Vial SUB-Q Not Given Q8HR LU Hydralazine HCl 50 mg 03/30/21 12:00 04/04/21 14:10 Hydralazine 25 Mg Tab PO Not Given TID LU Hydralazine HCl 10 mg 03/31/21 18:20 Hydralazine 20 Mg/1 Ml Inj IV Q6HR PRN Hypertension Hydromorphone HCl 0.25 mg 03/30/21 12:57 04/01/21 13:30 Hydromorphone 1 Mg/1 Ml Inj IV 0.25 mg Q6H PRN Administration Pain, Moderate (4-6) Hydroxyzine Pamoate 25 mg 03/31/21 22:00 Hydroxyzine Pamoate 25 Mg Cap PO HS PRN Sleep Sodium Chloride 1,000 mls @ 75 mls/hr 03/29/21 23:45 Nacl 0.9% 1000 Ml IV DIRECT LU Labetalol HCl 10 mg 04/01/21 21:32 Labetalol 20 Mg/4 Ml Inj IV Q6H PRN Hypertension Lisinopril 40 mg 03/30/21 12:00 04/04/21 09:01 Lisinopril 20 Mg Tab PO 40 mg QDAY LU Administration Lorazepam 1 mg 03/31/21 15:00 04/04/21 08:43 Lorazepam 1 Mg Tab PO 1 mg Q6H PRN Administration Anxiety Magnesium Hydroxide 30 ml 03/29/21 23:34 Magnesium Hydroxide (Mom) Oral Liqd Udc PO Q4H PRN Constipation Metoprolol Tartrate 25 mg 03/31/21 12:00 04/04/21 09:01 Metoprolol Tartrate 25 Mg Tab PO 25 mg BID LU Administration Nicotine 7 mg 03/31/21 20:00 04/04/21 09:04 Nicotine 7 Mg/24 Hr Patch TD 7 mg QDAY LU Administration Ondansetron HCl 4 mg 03/29/21 23:34 Ondansetron 4 Mg/2 Ml Inj IV Q8H PRN Nausea And Vomiting Oxycodone/Acetaminophen 1 tab 03/30/21 11:22 04/04/21 04:10 Oxycodone /Acetaminophen 5-325mg Tab PO 1 tab Q6H PRN Administration Pain, Moderate (4-6) Sodium Chloride 10 ml 03/30/21 10:00 04/04/21 09:04 Sodium Chloride 0.9% 10 Ml Flush Syringe IV 10 ml BID LU Administration Sodium Chloride 10 ml 03/29/21 23:34 Sodium Chloride 0.9% 10 Ml Flush Syringe IV PRN PRN LINE FLUSH Nutrition/Malnutrition Assess - Dietary Evaluation Nutrition/Malnutrition Findings: Nutrition Notes Start: 04/04/21 10:36 Freq: Status: Active Protocol: Document 04/04/21 10:36 SULMA (Rec: 04/04/21 10:39 SULMA [id number]) Nutrition Notes Need for Assessment generated from: LOS Initial or Follow up Brief Note Current Diagnosis Hypertension Other Pertinent Diagnosis COPD exacerbation, Bilat pneu Current Diet Cardiac Labs/Tests No current available Pertinent Medications Lasix Height 5 ft 3 in Weight 54.431 kg [place] Body Weight (kg) 52.27 BMI 21.2 Weight Status Underweight Subjective/Other Information Pt screened for LOS. She has consumed 83% of recorded meals . Percent of energy/protein needs met: 100% energy and pro needs Burn Absent Trauma Absent Current % PO Good (75-100%) Minimum of two criteria No Is patient on ventilator? No Is Patient Ambulatory and/or Out of Bed No REE-([facility]-confined to bed) 1123.867 Calculation Used for Recommendations [facility] Additional Notes Pro needs 1-1.2g/k-65g/ day Fluid needs 1ml/kcal Nutrition Intervention Follow-Up By: 04/11/21 Additional Comments F/U: stable intakes, wt
--- NOTE | 2021-04-04 20:27 | XRay Report ---
CHEST 1 VIEW 04/04/2021 8:13 PM INDICATION / CLINICAL INFORMATION: Shortness of breath/follow-up pneumonia. COMPARISON: One view of the chest from 03/29/2021. FINDINGS: SUPPORT DEVICES: None. HEART / MEDIASTINUM: No significant abnormality. LUNGS / PLEURA: Bilateral airspace opacities have improved. No significant pleural effusion. No pneum othorax. ADDITIONAL FINDINGS: No significant additional findings. IMPRESSION: Interval improvement of bilateral pneumonia. Signer Name: Fran Del Toro MD Signed: 04/04/2021 8:23 PM Workstation Name: [id number]
[2021-04-05] MEDS: ALBUTEROL 8.5 GM MDI INHALATION IH SCH ×4 (02:27→20:56)
[2021-04-05] MEDS: HEPARIN 5,000 UNIT/1 ML VIAL SUB-Q SCH ×3 (05:54→21:27)
[2021-04-05] MEDS: METOPROLOL TARTRATE 25 MG TAB PO SCH ×2 (09:17→21:23)
[2021-04-05] MEDS: NICOTINE 7 MG/24 HR PATCH TD SCH (09:18)
[2021-04-05] MEDS: hydrALAZINE 25 MG TAB PO SCH ×3 (09:18→21:24)
[2021-04-05] MEDS: LISINOPRIL 20 MG TAB PO SCH (09:18)
[2021-04-05] MEDS: FUROSEMIDE 40 MG/4 ML INJ IV SCH (09:19)
[2021-04-05] MEDS: oxyCODONE /ACETAMINOPHEN 5-325MG TAB PO PRN ×2 (12:48→23:40)
--- NOTE | 2021-04-05 19:10 | Progress Note ---
Assessment and Plan Assessment and plan: --Acute respiratory failure with hypoxia -Possibly secondary to the underlying pneumonia and COPD Patient was on 15 L of nasal cannula oxygen, titrated down to 10 L-8L today Wean as tolerated, maintain O2 sats above 90% Home O2 evaluation prior to discharge --Bilateral pneumonia; Patient received 3 doses empiric antibiotic Levaquin Procalcitonin level normal range antibiotics discontinued Cultures negative to date, ID following --COVID-19; PCR negative --Possible acute diastolic CHF Elevated BNP /shortness of breath Echocardiogram EF 50% Gentle diuresis with IV Lasix and supportive care --Acute hypokalemia improved after supplementation will continue to replete and monitor --Hypertension restarted hydralazine and lisinopril at home doses --History of COPD Oxygen titrate O2 sats to more than 90%, nebulizers Supportive care, home O2 evaluation at discharge --Tobacco dependence currently smoking 1/2 ppd smoking cessation counseling, supportive care, behavior change counseling, +15 minutes. --History of chronic pain per patient will provide PRN pain control PT evaluated the patient ; no DC needs Home O2 evaluation and home O2 set up as needed Closely monitor the patient and adjust management as needed Consults and recommendations noted and appreciated possible discharge in 1 to 2 days if stable Plan of care reviewed with the patient and her nurse I also discussed the discharge planning with case management Disposition; possible discharge in 1 to 2 days with home O2 04/04; patient continues to be on 8 L nasal cannula oxygen Unable to wean, will get follow-up chest x-ray to monitor pneumonia Consider CT chest and pulmonary consult if no improvement 04/05; patient oxygen is weaned to 4 L today, patient feels better Anxious to go home History Interval history: I seen and examined the patient at the bedside Patient's chart and medications reviewed Patient is more alert and awake not in acute distress Currently on 4 L of nasal cannula oxygen No new complaints Hospitalist Physical - Constitutional Vitals: Temp Pulse Resp BP Pulse Ox 98.1 F 66 18 136/68 98 04/05/21 11:22 04/05/21 11:22 04/05/21 11:22 04/05/21 11:22 04/05/21 11:22 General appearance: Present: no acute distress, well-nourished, other - EENT Eyes: Present: PERRL, EOM intact - Neck Neck: Present: supple, normal ROM - Respiratory Respiratory effort: normal Respiratory: bilateral: diminished, negative: rales, rhonchi, wheezing - Cardiovascular Rhythm: regular Heart Sounds: Present: S1 & S2 - Extremities Extremities: no ischemia, No edema - Abdominal General gastrointestinal: soft, non-tender, non-distended, normal bowel sounds - Integumentary Integumentary: Present: clear, warm - Psychiatric Psychiatric: appropriate mood/affect, cooperative - Neurologic Neurologic: moves all extremities HEART Score - HEART Score Troponin: Troponin T < 0.010 ng/mL (0.00-0.029) 03/29/21 20: Results - Labs CBC & Chem 7: 03/30/21 04:28 03/30/21 04:28 Labs: Laboratory Last Values WBC 5.8 K/mm3 (4.5-11.0) 03/30/21 04:28 RBC 3.23 M/mm3 (3.65-5.03) L 03/30/21 04:28 Hgb 10.2 gm/dl (10.1-14.3) 03/30/21 04:28 Hct 30.3 % (30.3-42.9) 03/30/21 04:28 MCV 94 fl (79-97) 03/30/21 04:28 MCH 31 pg (28-32) 03/30/21 04:28 MCHC 34 % (30-34) 03/30/21 04:28 RDW 15.3 % (13.2-15.2) H 03/30/21 04:28 Plt Count 224 K/mm3 (140-440) 03/30/21 04:28 Lymph % (Auto) 13.0 % (13.4-35.0) L 03/29/21 20:27 [place] % (Auto) 9.6 % (0.0-7.3) H 03/29/21 20: Eos % (Auto) 0.4 % (0.0-4.3) 03/29/21 20: Baso % (Auto) 0.8 % (0.0-1.8) 03/29/21 20: Lymph # (Auto) 1.1 K/mm3 (1.2-5.4) L 03/29/21 20: [place] # (Auto) 0.8 K/mm3 (0.0-0.8) 03/29/21 20:27 Eos # (Auto) 0.0 K/mm3 (0.0-0.4) 03/29/21 20:27 Baso # (Auto) 0.1 K/mm3 (0.0-0.1) 03/29/21 20:27 Add Manual Diff Complete 03/30/21 04:28 Total Counted 100 03/30/21 04:28 Seg Neutrophils % Thinner Sprayer 03/30/21 04:28 Seg Neuts % (Manual) 95.0 % (40.0-70.0) H 03/30/21 04:28 Band Neutrophils % 1.0 % 03/30/21 04:28 Lymphocytes % (Manual) 4.0 % (13.4-35.0) L 03/30/21 04:28 Reactive Lymphs % (Man) 0 % 03/30/21 04:28 Monocytes % (Manual) 0 % (0.0-7.3) 03/30/21 04:28 Eosinophils % (Manual) 0 % (0.0-4.3) 03/30/21 04:28 Basophils % (Manual) 0 % (0.0-1.8) 03/30/21 04:28 Metamyelocytes % 0 % 03/30/21 04:28 Myelocytes % 0 % 03/30/21 04:28 Promyelocytes % 0 % 03/30/21 04:28 Blast Cells % 0 % 03/30/21 04:28 Nucleated RBC % Not Reportable 03/30/21 04:28 Seg Neutrophils # 6.4 K/mm3 (1.8-7.7) 03/29/21 20:27 Seg Neutrophils # Man 5.5 K/mm3 (1.8-7.7) 03/30/21 04:28 Band Neutrophils # 0.1 K/mm3 03/30/21 04:28 Lymphocytes # (Manual) 0.2 K/mm3 (1.2-5.4) L 03/30/21 04:28 Abs React Lymphs (Man) 0.0 K/mm3 03/30/21 04:28 Monocytes # (Manual) 0.0 K/mm3 (0.0-0.8) 03/30/21 04:28 Eosinophils # (Manual) 0.0 K/mm3 (0.0-0.4) 03/30/21 04:28 Basophils # (Manual) 0.0 K/mm3 (0.0-0.1) 03/30/21 04:28 Metamyelocytes # 0.0 K/mm3 03/30/21 04:28 Myelocytes # 0.0 K/mm3 03/30/21 04:28 Promyelocytes # 0.0 K/mm3 03/30/21 04:28 Blast Cells # 0.0 K/mm3 03/30/21 04:28 WBC Morphology Not Reportable 03/30/21 04:28 Hypersegmented Neuts Not Reportable 03/30/21 04:28 Hyposegmented Neuts Not Reportable 03/30/21 04:28 Hypogranular Neuts Not Reportable 03/30/21 04:28 Smudge Cells Not Reportable 03/30/21 04:28 Toxic Granulation Not Reportable 03/30/21 04:28 Toxic Vacuolation Not Reportable 03/30/21 04:28 Dohle Bodies Not Reportable 03/30/21 04:28 Pelger-Huet Anomaly Not Reportable 03/30/21 04:28 Meena Rods Not Reportable 03/30/21 04:28 Platelet Estimate Consistent w auto 03/30/21 04:28 Clumped Platelets Not Reportable 03/30/21 04:28 Plt Clumps, EDTA Not Reportable 03/30/21 04:28 Large Platelets Not Reportable 03/30/21 04:28 Giant Platelets Not Reportable 03/30/21 04:28 Platelet Satelliting Not Reportable 03/30/21 04:28 Plt Morphology Comment Not Reportable 03/30/21 04:28 RBC Morphology Not Reportable 03/30/21 04:28 Dimorphic RBCs Not Reportable 03/30/21 04:28 Polychromasia Few 03/30/21 04:28 Hypochromasia Few 03/30/21 04:28 Poikilocytosis Not Reportable 03/30/21 04:28 Anisocytosis Few 03/30/21 04:28 Microcytosis Not Reportable 03/30/21 04:28 Macrocytosis Not Reportable 03/30/21 04:28 Spherocytes Not Reportable 03/30/21 04:28 Pappenheimer Bodies Not Reportable 03/30/21 04:28 Sickle Cells Not Reportable 03/30/21 04:28 Target Cells Not Reportable 03/30/21 04:28 Tear Drop Cells Not Reportable 03/30/21 04:28 Ovalocytes Not Reportable 03/30/21 04:28 Helmet Cells Not Reportable 03/30/21 04:28 [place] Bodies Not Reportable 03/30/21 04:28 [place] Rings Not Reportable 03/30/21 04:28 [place] Cells Not Reportable 03/30/21 04:28 Bite Cells Not Reportable 03/30/21 04:28 Crenated Cell Not Reportable 03/30/21 04:28 Elliptocytes Not Reportable 03/30/21 04:28 Acanthocytes (Spur) Not Reportable 03/30/21 04:28 Rouleaux Not Reportable 03/30/21 04:28 Hemoglobin C Crystals Not Reportable 03/30/21 04:28 Schistocytes Not Reportable 03/30/21 04:28 Malaria parasites Not Reportable 03/30/21 04:28 Ramesh Bodies Not Reportable 03/30/21 04:28 Hem Pathologist Commnt No 03/30/21 04:28 PT 14.0 Sec. (12.2-14.9) 03/29/21 20: INR 0.97 (0.87-1.13) 03/29/21 20:27 APTT 31.4 Sec. (24.2-36.6) 03/29/21 20:27 Sodium 142 mmol/L (137-145) 03/30/21 04:28 Potassium 3.6 mmol/L (3.6-5.0) D 03/30/21 04:28 Chloride 101.3 mmol/L (98-107) 03/30/21 04:28 Carbon Dioxide 24 mmol/L (22-30) 03/30/21 04:28 Anion Gap 20 mmol/L 03/30/21 04:28 BUN 7 mg/dL (7-17) 03/30/21 04:28 Creatinine 0.5 mg/dL (0.6-1.2) L 03/30/21 04:28 Estimated GFR > 60 ml/min 03/30/21 04:28 BUN/Creatinine Ratio 14 % 03/30/21 04:28 Glucose 203 mg/dL (65-100) H 03/30/21 04:28 POC Glucose 115 mg/dL (70-105) H 04/05/21 16:08 Lactic Acid 1.30 mmol/L (0.7-2.0) 03/29/21 20:27 Calcium 9.0 mg/dL (8.4-10.2) 03/30/21 04:28 Troponin T < 0.010 ng/mL (0.00-0.029) 03/29/21 20:27 NT-Pro-B Natriuret Pep 3058 pg/mL (0-900) H 03/29/21 20:27 Procalcitonin 0.13 ng/mL (<0.15) 04/01/21 06:48 Coronavirus (PCR) Negative (Negative) 03/30/21 10:00 Pham/IV: Voiding Method Toilet Active Medications - Current Medications Current Medications: Generic Name Dose Route Start Last Admin Trade Name Freq PRN Reason Stop Dose Admin Acetaminophen 650 mg 03/30/21 12:57 04/03/21 10:13 Acetaminophen 325 Mg Tab PO 650 mg Q4H PRN Administration Pain MILD(1-3)/Fever >100.5/NAVARRO Albuterol 2 puff 04/04/21 08:00 04/05/21 14:49 Albuterol 8.5 Gm Mdi Inhalation IH 2 puff TIDRT LU Administration Furosemide 40 mg 04/03/21 07:00 04/05/21 09:19 Furosemide 40 Mg/4 Ml Inj IV 40 mg QDAY LU Administration Heparin Sodium (Porcine) 5,000 unit 03/30/21 06:00 04/05/21 14:25 Heparin 5,000 Unit/1 Ml Vial SUB-Q 5,000 unit Q8HR LU Administration Hydralazine HCl 50 mg 03/30/21 12:00 04/05/21 14:25 Hydralazine 25 Mg Tab PO 50 mg TID LU Administration Hydralazine HCl 10 mg 03/31/21 18:20 Hydralazine 20 Mg/1 Ml Inj IV Q6HR PRN Hypertension Hydromorphone HCl 0.25 mg 03/30/21 12:57 04/01/21 13:30 Hydromorphone 1 Mg/1 Ml Inj IV 0.25 mg Q6H PRN Administration Pain, Moderate (4-6) Hydroxyzine Pamoate 25 mg 03/31/21 22:00 Hydroxyzine Pamoate 25 Mg Cap PO HS PRN Sleep Sodium Chloride 1,000 mls @ 75 mls/hr 03/29/21 23:45 Nacl 0.9% 1000 Ml IV DIRECT LU Labetalol HCl 10 mg 04/01/21 21:32 Labetalol 20 Mg/4 Ml Inj IV Q6H PRN Hypertension Lisinopril 40 mg 03/30/21 12:00 04/05/21 09:18 Lisinopril 20 Mg Tab PO 40 mg QDAY LU Administration Lorazepam 1 mg 03/31/21 15:00 04/04/21 08:43 Lorazepam 1 Mg Tab PO 1 mg Q6H PRN Administration Anxiety Magnesium Hydroxide 30 ml 03/29/21 23:34 Magnesium Hydroxide (Mom) Oral Liqd Udc PO Q4H PRN Constipation Metoprolol Tartrate 25 mg 03/31/21 12:00 04/05/21 09:17 Metoprolol Tartrate 25 Mg Tab PO 25 mg BID LU Administration Nicotine 7 mg 03/31/21 20:00 04/05/21 09:18 Nicotine 7 Mg/24 Hr Patch TD 7 mg QDAY LU Administration Ondansetron HCl 4 mg 03/29/21 23:34 Ondansetron 4 Mg/2 Ml Inj IV Q8H PRN Nausea And Vomiting Oxycodone/Acetaminophen 1 tab 03/30/21 11:22 04/05/21 12:48 Oxycodone /Acetaminophen 5-325mg Tab PO 1 tab Q6H PRN Administration Pain, Moderate (4-6) Sodium Chloride 10 ml 03/30/21 10:00 04/05/21 09:18 Sodium Chloride 0.9% 10 Ml Flush Syringe IV 10 ml BID LU Administration Sodium Chloride 10 ml 03/29/21 23:34 Sodium Chloride 0.9% 10 Ml Flush Syringe IV PRN PRN LINE FLUSH Nutrition/Malnutrition Assess - Dietary Evaluation Nutrition/Malnutrition Findings: Nutrition Notes Start: 04/04/21 10:36 Freq: Status: Active Protocol: Document 04/04/21 10:36 SULMA (Rec: 04/04/21 10:39 ARLIZBETH [id number]) Nutrition Notes Need for Assessment generated from: LOS Initial or Follow up Brief Note Current Diagnosis Hypertension Other Pertinent Diagnosis COPD exacerbation, Bilat pneu Current Diet Cardiac Labs/Tests No current available Pertinent Medications Lasix Height 5 ft 3 in Weight 54.431 kg [place] Body Weight (kg) 52.27 BMI 21.2 Weight Status Underweight Subjective/Other Information Pt screened for LOS. She has consumed 83% of recorded meals . Percent of energy/protein needs met: 100% energy and pro needs Burn Absent Trauma Absent Current % PO Good (75-100%) Minimum of two criteria No Is patient on ventilator? No Is Patient Ambulatory and/or Out of Bed No REE-([facility]-confined to bed) [phone] Calculation Used for Recommendations [facility] Additional Notes Pro needs 1-1.2g/k-65g/ day Fluid needs 1ml/kcal Nutrition Intervention Follow-Up By: 04/11/21 Additional Comments F/U: stable intakes, wt
[2021-04-05] MEDS: LORazepam 1 MG TAB PO PRN (23:40)
[2021-04-06] MEDS: HEPARIN 5,000 UNIT/1 ML VIAL SUB-Q SCH ×3 (06:38→21:26)
[2021-04-06] MEDS: ALBUTEROL 8.5 GM MDI INHALATION IH SCH ×3 (09:18→21:45)
[2021-04-06] MEDS: hydrALAZINE 25 MG TAB PO SCH ×3 (09:30→21:26)
[2021-04-06] MEDS: LISINOPRIL 20 MG TAB PO SCH (09:30)
[2021-04-06] MEDS: NICOTINE 7 MG/24 HR PATCH TD SCH (09:30)
[2021-04-06] MEDS: FUROSEMIDE 40 MG/4 ML INJ IV SCH (09:30)
[2021-04-06] MEDS: METOPROLOL TARTRATE 25 MG TAB PO SCH ×2 (09:32→21:27)
--- NOTE | 2021-04-06 10:35 | Discharge Summary ---
Providers - Providers Date of Admission: 03/30/21 12:57 Date of discharge: 04/06/21 Attending physician: ABEBA STORM 03/29/21 23:34 Consult to Physician [CONS] Routine Comment: Consulting Provider: CHIKI BALDERAS Physician Instructions: Reason For Exam: Acute respiratory distress with hypoxia, PUI 04/02/21 10:05 Physical Therapy Evaluation and Treat [CONS] Routine Comment: Reason For Exam: General debility/respiratory failure/DC needs Hospitalization Condition: Stable Disposition: 30 STILL A PATIENT Exam - Constitutional Vitals: Temp Pulse Resp BP Pulse Ox 98.1 F 69 20 155/73 94 04/06/21 07:59 04/06/21 07:59 04/06/21 07:59 04/06/21 07:59 04/06/21 07:59 Plan Follow up with: CRISTELA HARKINS [Other] - 3-5 Days
--- NOTE | 2021-04-06 20:20 | Progress Note ---
Assessment and Plan Assessment and plan: --Acute respiratory failure with hypoxia -Possibly secondary to the underlying pneumonia and COPD Patient was on 15 L of nasal cannula oxygen, titrated down to 10 L-8L today Wean as tolerated, maintain O2 sats above 90% Home O2 evaluation prior to discharge --Bilateral pneumonia; Patient received 3 doses empiric antibiotic Levaquin Procalcitonin level normal range antibiotics discontinued Cultures negative to date, ID following --COVID-19; PCR negative --Possible acute diastolic CHF Elevated BNP /shortness of breath Echocardiogram EF 50% Gentle diuresis with IV Lasix and supportive care --Acute hypokalemia improved after supplementation will continue to replete and monitor --Hypertension restarted hydralazine and lisinopril at home doses --History of COPD Oxygen titrate O2 sats to more than 90%, nebulizers Supportive care, home O2 evaluation at discharge --Tobacco dependence currently smoking 1/2 ppd smoking cessation counseling, supportive care, behavior change counseling, +15 minutes. --History of chronic pain per patient will provide PRN pain control PT evaluated the patient ; no DC needs Home O2 evaluation and home O2 set up as needed Closely monitor the patient and adjust management as needed Consults and recommendations noted and appreciated possible discharge in 1 to 2 days if stable Plan of care reviewed with the patient and her nurse I also discussed the discharge planning with case management Disposition; possible discharge in 1 to 2 days with home O2 04/04; patient continues to be on 8 L nasal cannula oxygen Unable to wean, will get follow-up chest x-ray to monitor pneumonia Consider CT chest and pulmonary consult if no improvement 04/05; patient oxygen is weaned to 4 L today, patient feels better Anxious to go home 04/06; patient is medically stable for discharge on 2 L of nasal cannula oxygen Case management processing placement History Interval history: Patient patient at the bedside Patient's chart and medications reviewed Vital signs noted Currently patient is on 2 L of nasal cannula oxygen No new complaints Hospitalist Physical - Constitutional Vitals: Temp Pulse Resp BP Pulse Ox 97.9 F 73 20 123/67 98 04/06/21 15:51 04/06/21 15:51 04/06/21 15:51 04/06/21 15:51 04/06/21 15:51 General appearance: Present: mild distress, well-nourished, other - EENT Eyes: Present: PERRL, EOM intact - Neck Neck: Present: supple, normal ROM - Respiratory Respiratory effort: normal Respiratory: bilateral: diminished, negative: rales, rhonchi, wheezing - Cardiovascular Rhythm: regular Heart Sounds: Present: S1 & S2 - Extremities Extremities: no ischemia, No edema - Abdominal General gastrointestinal: soft, non-tender, non-distended, normal bowel sounds - Integumentary Integumentary: Present: clear, warm - Psychiatric Psychiatric: appropriate mood/affect, agitated - Neurologic Neurologic: CNII-XII intact, moves all extremities HEART Score - HEART Score Troponin: Troponin T < 0.010 ng/mL (0.00-0.029) 03/29/21 20: Results - Labs CBC & Chem 7: 03/30/21 04:28 03/30/21 04:28 Labs: Laboratory Last Values WBC 5.8 K/mm3 (4.5-11.0) 03/30/21 04:28 RBC 3.23 M/mm3 (3.65-5.03) L 03/30/21 04:28 Hgb 10.2 gm/dl (10.1-14.3) 03/30/21 04:28 Hct 30.3 % (30.3-42.9) 03/30/21 04:28 MCV 94 fl (79-97) 03/30/21 04:28 MCH 31 pg (28-32) 03/30/21 04:28 MCHC 34 % (30-34) 03/30/21 04:28 RDW 15.3 % (13.2-15.2) H 03/30/21 04:28 Plt Count 224 K/mm3 (140-440) 03/30/21 04:28 Lymph % (Auto) 13.0 % (13.4-35.0) L 03/29/21 20: [place] % (Auto) 9.6 % (0.0-7.3) H 03/29/21 20: Eos % (Auto) 0.4 % (0.0-4.3) 03/29/21 20: Baso % (Auto) 0.8 % (0.0-1.8) 03/29/21 20: Lymph # (Auto) 1.1 K/mm3 (1.2-5.4) L 03/29/21 20:27 [place] # (Auto) 0.8 K/mm3 (0.0-0.8) 03/29/21 20:27 Eos # (Auto) 0.0 K/mm3 (0.0-0.4) 03/29/21 20:27 Baso # (Auto) 0.1 K/mm3 (0.0-0.1) 03/29/21 20:27 Add Manual Diff Complete 03/30/21 04:28 Total Counted 100 03/30/21 04:28 Seg Neutrophils % Firmware Architect 03/30/21 04:28 Seg Neuts % (Manual) 95.0 % (40.0-70.0) H 03/30/21 04:28 Band Neutrophils % 1.0 % 03/30/21 04:28 Lymphocytes % (Manual) 4.0 % (13.4-35.0) L 03/30/21 04:28 Reactive Lymphs % (Man) 0 % 03/30/21 04:28 Monocytes % (Manual) 0 % (0.0-7.3) 03/30/21 04:28 Eosinophils % (Manual) 0 % (0.0-4.3) 03/30/21 04:28 Basophils % (Manual) 0 % (0.0-1.8) 03/30/21 04:28 Metamyelocytes % 0 % 03/30/21 04:28 Myelocytes % 0 % 03/30/21 04:28 Promyelocytes % 0 % 03/30/21 04:28 Blast Cells % 0 % 03/30/21 04:28 Nucleated RBC % Not Reportable 03/30/21 04:28 Seg Neutrophils # 6.4 K/mm3 (1.8-7.7) 03/29/21 20:27 Seg Neutrophils # Man 5.5 K/mm3 (1.8-7.7) 03/30/21 04:28 Band Neutrophils # 0.1 K/mm3 03/30/21 04:28 Lymphocytes # (Manual) 0.2 K/mm3 (1.2-5.4) L 03/30/21 04:28 Abs React Lymphs (Man) 0.0 K/mm3 03/30/21 04:28 Monocytes # (Manual) 0.0 K/mm3 (0.0-0.8) 03/30/21 04:28 Eosinophils # (Manual) 0.0 K/mm3 (0.0-0.4) 03/30/21 04:28 Basophils # (Manual) 0.0 K/mm3 (0.0-0.1) 03/30/21 04:28 Metamyelocytes # 0.0 K/mm3 03/30/21 04:28 Myelocytes # 0.0 K/mm3 03/30/21 04:28 Promyelocytes # 0.0 K/mm3 03/30/21 04:28 Blast Cells # 0.0 K/mm3 03/30/21 04:28 WBC Morphology Not Reportable 03/30/21 04:28 Hypersegmented Neuts Not Reportable 03/30/21 04:28 Hyposegmented Neuts Not Reportable 03/30/21 04:28 Hypogranular Neuts Not Reportable 03/30/21 04:28 Smudge Cells Not Reportable 03/30/21 04:28 Toxic Granulation Not Reportable 03/30/21 04:28 Toxic Vacuolation Not Reportable 03/30/21 04:28 Dohle Bodies Not Reportable 03/30/21 04:28 Pelger-Huet Anomaly Not Reportable 03/30/21 04:28 Meena Rods Not Reportable 03/30/21 04:28 Platelet Estimate Consistent w auto 03/30/21 04:28 Clumped Platelets Not Reportable 03/30/21 04:28 Plt Clumps, EDTA Not Reportable 03/30/21 04:28 Large Platelets Not Reportable 03/30/21 04:28 Giant Platelets Not Reportable 03/30/21 04:28 Platelet Satelliting Not Reportable 03/30/21 04:28 Plt Morphology Comment Not Reportable 03/30/21 04:28 RBC Morphology Not Reportable 03/30/21 04:28 Dimorphic RBCs Not Reportable 03/30/21 04:28 Polychromasia Few 03/30/21 04:28 Hypochromasia Few 03/30/21 04:28 Poikilocytosis Not Reportable 03/30/21 04:28 Anisocytosis Few 03/30/21 04:28 Microcytosis Not Reportable 03/30/21 04:28 Macrocytosis Not Reportable 03/30/21 04:28 Spherocytes Not Reportable 03/30/21 04:28 Pappenheimer Bodies Not Reportable 03/30/21 04:28 Sickle Cells Not Reportable 03/30/21 04:28 Target Cells Not Reportable 03/30/21 04:28 Tear Drop Cells Not Reportable 03/30/21 04:28 Ovalocytes Not Reportable 03/30/21 04:28 Helmet Cells Not Reportable 03/30/21 04:28 [place] Bodies Not Reportable 03/30/21 04:28 [place] Rings Not Reportable 03/30/21 04:28 [place] Cells Not Reportable 03/30/21 04:28 Bite Cells Not Reportable 03/30/21 04:28 Crenated Cell Not Reportable 03/30/21 04:28 Elliptocytes Not Reportable 03/30/21 04:28 Acanthocytes (Spur) Not Reportable 03/30/21 04:28 Rouleaux Not Reportable 03/30/21 04:28 Hemoglobin C Crystals Not Reportable 03/30/21 04:28 Schistocytes Not Reportable 03/30/21 04:28 Malaria parasites Not Reportable 03/30/21 04:28 Ramesh Bodies Not Reportable 03/30/21 04:28 Hem Pathologist Commnt No 03/30/21 04:28 PT 14.0 Sec. (12.2-14.9) 03/29/21 20:27 INR 0.97 (0.87-1.13) 03/29/21 20:27 APTT 31.4 Sec. (24.2-36.6) 03/29/21 20:27 Sodium 142 mmol/L (137-145) 03/30/21 04:28 Potassium 3.6 mmol/L (3.6-5.0) D 03/30/21 04:28 Chloride 101.3 mmol/L (98-107) 03/30/21 04:28 Carbon Dioxide 24 mmol/L (22-30) 03/30/21 04:28 Anion Gap 20 mmol/L 03/30/21 04:28 BUN 7 mg/dL (7-17) 03/30/21 04:28 Creatinine 0.5 mg/dL (0.6-1.2) L 03/30/21 04:28 Estimated GFR > 60 ml/min 03/30/21 04:28 BUN/Creatinine Ratio 14 % 03/30/21 04:28 Glucose 203 mg/dL (65-100) H 03/30/21 04:28 POC Glucose 106 mg/dL (70-105) H 04/06/21 08:03 Lactic Acid 1.30 mmol/L (0.7-2.0) 03/29/21 20:27 Calcium 9.0 mg/dL (8.4-10.2) 03/30/21 04:28 Troponin T < 0.010 ng/mL (0.00-0.029) 03/29/21 20:27 NT-Pro-B Natriuret Pep 3058 pg/mL (0-900) H 03/29/21 20:27 Procalcitonin 0.13 ng/mL (<0.15) 04/01/21 06:48 Coronavirus (PCR) Negative (Negative) 03/30/21 10:00 Pham/IV: Voiding Method Toilet Active Medications - Current Medications Current Medications: Generic Name Dose Route Start Last Admin Trade Name Freq PRN Reason Stop Dose Admin Acetaminophen 650 mg 03/30/21 12:57 04/03/21 10:13 Acetaminophen 325 Mg Tab PO 650 mg Q4H PRN Administration Pain MILD(1-3)/Fever >100.5/NAVARRO Albuterol 2 puff 04/04/21 08:00 04/06/21 13:50 Albuterol 8.5 Gm Mdi Inhalation IH 2 puff TIDRT LU Administration Furosemide 40 mg 04/03/21 07:00 04/06/21 09:30 Furosemide 40 Mg/4 Ml Inj IV Not Given QDAY [facility] Heparin Sodium (Porcine) 5,000 unit 03/30/21 06:00 04/06/21 13:39 Heparin 5,000 Unit/1 Ml Vial SUB-Q 5,000 unit Q8HR LU Administration Hydralazine HCl 50 mg 03/30/21 12:00 04/06/21 13:39 Hydralazine 25 Mg Tab PO 50 mg TID LU Administration Hydralazine HCl 10 mg 03/31/21 18:20 Hydralazine 20 Mg/1 Ml Inj IV Q6HR PRN Hypertension Hydromorphone HCl 0.25 mg 03/30/21 12:57 04/01/21 13:30 Hydromorphone 1 Mg/1 Ml Inj IV 0.25 mg Q6H PRN Administration Pain, Moderate (4-6) Hydroxyzine Pamoate 25 mg 03/31/21 22:00 Hydroxyzine Pamoate 25 Mg Cap PO HS PRN Sleep Sodium Chloride 1,000 mls @ 75 mls/hr 03/29/21 23:45 Nacl 0.9% 1000 Ml IV DIRECT LU Labetalol HCl 10 mg 04/01/21 21:32 Labetalol 20 Mg/4 Ml Inj IV Q6H PRN Hypertension Lisinopril 40 mg 03/30/21 12:00 04/06/21 09:30 Lisinopril 20 Mg Tab PO 40 mg QDAY LU Administration Lorazepam 1 mg 03/31/21 15:00 04/05/21 23:40 Lorazepam 1 Mg Tab PO 1 mg Q6H PRN Administration Anxiety Magnesium Hydroxide 30 ml 03/29/21 23:34 Magnesium Hydroxide (Mom) Oral Liqd Udc PO Q4H PRN Constipation Metoprolol Tartrate 25 mg 03/31/21 12:00 04/06/21 09:32 Metoprolol Tartrate 25 Mg Tab PO 25 mg BID LU Administration Nicotine 7 mg 03/31/21 20:00 04/06/21 09:30 Nicotine 7 Mg/24 Hr Patch TD 7 mg QDAY LU Administration Ondansetron HCl 4 mg 03/29/21 23:34 Ondansetron 4 Mg/2 Ml Inj IV Q8H PRN Nausea And Vomiting Oxycodone/Acetaminophen 1 tab 03/30/21 11:22 04/05/21 23:40 Oxycodone /Acetaminophen 5-325mg Tab PO 1 tab Q6H PRN Administration Pain, Moderate (4-6) Sodium Chloride 10 ml 03/30/21 10:00 04/06/21 09:30 Sodium Chloride 0.9% 10 Ml Flush Syringe IV 10 ml BID LU Administration Sodium Chloride 10 ml 03/29/21 23:34 Sodium Chloride 0.9% 10 Ml Flush Syringe IV PRN PRN LINE FLUSH Nutrition/Malnutrition Assess - Dietary Evaluation Nutrition/Malnutrition Findings: Nutrition Notes Start: 04/04/21 10:36 Freq: Status: Active Protocol: Document 04/04/21 10:36 SULMA (Rec: 04/04/21 10:39 NELIZBETH [id number]) Nutrition Notes Need for Assessment generated from: LOS Initial or Follow up Brief Note Current Diagnosis Hypertension Other Pertinent Diagnosis COPD exacerbation, Bilat pneu Current Diet Cardiac Labs/Tests No current available Pertinent Medications Lasix Height 5 ft 3 in Weight 54.431 kg [place] Body Weight (kg) 52.27 BMI 21.2 Weight Status Underweight Subjective/Other Information Pt screened for LOS. She has consumed 83% of recorded meals . Percent of energy/protein needs met: 100% energy and pro needs Burn Absent Trauma Absent Current % PO Good (75-100%) Minimum of two criteria No Is patient on ventilator? No Is Patient Ambulatory and/or Out of Bed No REE-([place]-St. Jeor-confined to bed) 5781.776 Calculation Used for Recommendations [place] or Additional Notes Pro needs 1-1.2g/k-65g/ day Fluid needs 1ml/kcal Nutrition Intervention Follow-Up By: 04/11/21 Additional Comments F/U: stable intakes, wt
[2021-04-06] MEDS: PANTOPRAZOLE 40 MG TAB PO SCH (21:28)
[2021-04-07] MEDS: HEPARIN 5,000 UNIT/1 ML VIAL SUB-Q SCH ×3 (07:12→21:37)
[2021-04-07] MEDS: ALBUTEROL 8.5 GM MDI INHALATION IH SCH ×3 (08:53→22:29)
[2021-04-07] MEDS: METOPROLOL TARTRATE 25 MG TAB PO SCH ×2 (10:31→21:37)
[2021-04-07] MEDS: PANTOPRAZOLE 40 MG TAB PO SCH ×2 (10:31→21:37)
[2021-04-07] MEDS: LISINOPRIL 20 MG TAB PO SCH (10:32)
[2021-04-07] MEDS: FUROSEMIDE 40 MG/4 ML INJ IV SCH (10:34)
[2021-04-07] MEDS: oxyCODONE /ACETAMINOPHEN 5-325MG TAB PO PRN ×2 (10:36→16:27)
[2021-04-07] MEDS: hydrALAZINE 25 MG TAB PO SCH ×3 (10:42→21:38)
[2021-04-07] MEDS: NICOTINE 7 MG/24 HR PATCH TD SCH (10:43)
[2021-04-07] MEDS: ACETAMINOPHEN 325 MG TAB PO PRN ×2 (14:12→20:28)
--- NOTE | 2021-04-07 15:41 | Discharge Summary ---
Providers - Providers Date of Admission: 03/30/21 12:57 Date of discharge: 04/07/21 Attending physician: ABEBA STORM 03/29/21 23:34 Consult to Physician [CONS] Routine Comment: Consulting Provider: CHIKI BALDERAS Physician Instructions: Reason For Exam: Acute respiratory distress with hypoxia, PUI 04/02/21 10:05 Physical Therapy Evaluation and Treat [CONS] Routine Comment: Reason For Exam: General debility/respiratory failure/DC needs Hospitalization Condition: Stable Hospital course: --Acute respiratory failure with hypoxia -Possibly secondary to the underlying pneumonia and COPD Patient was on 15 L of nasal cannula oxygen, titrated down to 10 L-8L today Wean as tolerated, maintain O2 sats above 90% Home O2 evaluation prior to discharge --Bilateral pneumonia; Patient received 3 doses empiric antibiotic Levaquin Procalcitonin level normal range antibiotics discontinued Cultures negative to date, ID following --COVID-19; PCR negative --Possible acute diastolic CHF Elevated BNP /shortness of breath Echocardiogram EF 50% Gentle diuresis with IV Lasix and supportive care --Acute hypokalemia improved after supplementation will continue to replete and monitor --Hypertension restarted hydralazine and lisinopril at home doses --History of COPD Oxygen titrate O2 sats to more than 90%, nebulizers Supportive care, home O2 evaluation at discharge --Tobacco dependence currently smoking 1/2 ppd smoking cessation counseling, supportive care, behavior change counseling, +15 minutes. --History of chronic pain per patient will provide PRN pain control / Disposition: 01 HOME / SELF CARE / HOMELESS Final Discharge Diagnosis (Prints w/discharge instructions): Acute respiratory failure with hypoxia present on admission on 15 L nasal cannula oxygen now resolved; saturating well on room air]. Bilateral pneumonia received empirical treatment for 3 days. COVID-19 negative. Ongoing tobacco use. Possible acute diastolic CHF. Hypokalemia corrected. Hypertension stable. History of COPD stable. Ongoing tobacco use smoking cessation counseled. History of chronic pain Time spent for discharge: 40 min Core Measure Documentation - Palliative Care Palliative Care/ Comfort Measures: Not Applicable - Core Measures Any of the following diagnoses?: none Exam - Constitutional Vitals: Temp Pulse Resp BP Pulse Ox 97.3 F L 71 18 126/59 96 04/07/21 08:20 04/07/21 14:09 04/07/21 14:00 04/07/21 14:09 04/07/21 08:56 Plan Activity: advance as tolerated Diet: other (Cardiac diet) Special Instructions: smoking cessation Additional Instructions: If you have worsening symptoms contact MD or go to the nearest emergency room. Advised smoking cessation nicotine patch as needed. You do not need home oxygen, your oxygen numbers are more than 94% on evaluation Follow up with: CRISTELA HARKINS [Other] - 3-5 Days Prescriptions: hydrALAZINE [Apresoline TAB] 50 mg PO TID #90 tablet Metoprolol [Lopressor TAB] 25 mg PO BID #60 tablet Albuterol Sulfate [Proventil Hfa] 2 puff IH 4XD #1 inh lisinopriL [Zestril TAB] 40 mg PO QDAY #30
--- NOTE | 2021-04-07 20:17 | Progress Note ---
Assessment and Plan Assessment and plan: --Acute respiratory failure with hypoxia -Possibly secondary to the underlying pneumonia and COPD Patient was on 15 L of nasal cannula oxygen, titrated down to 10 L-8L today Wean as tolerated, maintain O2 sats above 90% Home O2 evaluation prior to discharge --Bilateral pneumonia; Patient received 3 doses empiric antibiotic Levaquin Procalcitonin level normal range antibiotics discontinued Cultures negative to date, ID following --COVID-19; PCR negative --Possible acute diastolic CHF Elevated BNP /shortness of breath Echocardiogram EF 50% Gentle diuresis with IV Lasix and supportive care --Acute hypokalemia improved after supplementation will continue to replete and monitor --Hypertension restarted hydralazine and lisinopril at home doses --History of COPD Oxygen titrate O2 sats to more than 90%, nebulizers Supportive care, home O2 evaluation at discharge --Tobacco dependence currently smoking 1/2 ppd smoking cessation counseling, supportive care, behavior change counseling, +15 minutes. --History of chronic pain per patient will provide PRN pain control PT evaluated the patient ; no DC needs Home O2 evaluation and home O2 set up as needed Closely monitor the patient and adjust management as needed Consults and recommendations noted and appreciated possible discharge in 1 to 2 days if stable Plan of care reviewed with the patient and her nurse I also discussed the discharge planning with case management Disposition; possible discharge in 1 to 2 days with home O2 04/04; patient continues to be on 8 L nasal cannula oxygen Unable to wean, will get follow-up chest x-ray to monitor pneumonia Consider CT chest and pulmonary consult if no improvement 04/05; patient oxygen is weaned to 4 L today, patient feels better Anxious to go home 04/06; patient is medically stable for discharge on 2 L of nasal cannula oxygen Case management processing placement Hospitalist Physical - Constitutional Vitals: Temp Pulse Resp BP Pulse Ox 95.7 F L 71 18 143/70 96 04/07/21 15:40 04/07/21 14:09 04/07/21 15:40 04/07/21 15:40 04/07/21 08:56 General appearance: Present: mild distress, well-nourished, other HEART Score - HEART Score Troponin: Troponin T < 0.010 ng/mL (0.00-0.029) 03/29/21 20:27 Results - Labs CBC & Chem 7: 03/30/21 04:28 03/30/21 04:28 Labs: Laboratory Last Values WBC 5.8 K/mm3 (4.5-11.0) 03/30/21 04:28 RBC 3.23 M/mm3 (3.65-5.03) L 03/30/21 04:28 Hgb 10.2 gm/dl (10.1-14.3) 03/30/21 04:28 Hct 30.3 % (30.3-42.9) 03/30/21 04:28 MCV 94 fl (79-97) 03/30/21 04:28 MCH 31 pg (28-32) 03/30/21 04:28 MCHC 34 % (30-34) 03/30/21 04:28 RDW 15.3 % (13.2-15.2) H 03/30/21 04:28 Plt Count 224 K/mm3 (140-440) 03/30/21 04:28 Lymph % (Auto) 13.0 % (13.4-35.0) L 03/29/21 20: [place] % (Auto) 9.6 % (0.0-7.3) H 03/29/21 20: Eos % (Auto) 0.4 % (0.0-4.3) 03/29/21 20: Baso % (Auto) 0.8 % (0.0-1.8) 03/29/21 20: Lymph # (Auto) 1.1 K/mm3 (1.2-5.4) L 03/29/21 20: [place] # (Auto) 0.8 K/mm3 (0.0-0.8) 03/29/21 20: Eos # (Auto) 0.0 K/mm3 (0.0-0.4) 03/29/21 20: Baso # (Auto) 0.1 K/mm3 (0.0-0.1) 03/29/21 20: Add Manual Diff Complete 03/30/21 04:28 Total Counted 100 03/30/21 04:28 Seg Neutrophils % [employer] L[employer] 03/30/21 04:28 Seg Neuts % (Manual) 95.0 % (40.0-70.0) H 03/30/21 04:28 Band Neutrophils % 1.0 % 03/30/21 04:28 Lymphocytes % (Manual) 4.0 % (13.4-35.0) L 03/30/21 04:28 Reactive Lymphs % (Man) 0 % 03/30/21 04:28 Monocytes % (Manual) 0 % (0.0-7.3) 03/30/21 04:28 Eosinophils % (Manual) 0 % (0.0-4.3) 03/30/21 04:28 Basophils % (Manual) 0 % (0.0-1.8) 03/30/21 04:28 Metamyelocytes % 0 % 03/30/21 04:28 Myelocytes % 0 % 03/30/21 04:28 Promyelocytes % 0 % 03/30/21 04:28 Blast Cells % 0 % 03/30/21 04:28 Nucleated RBC % Not Reportable 03/30/21 04:28 Seg Neutrophils # 6.4 K/mm3 (1.8-7.7) 03/29/21 20:27 Seg Neutrophils # Man 5.5 K/mm3 (1.8-7.7) 03/30/21 04:28 Band Neutrophils # 0.1 K/mm3 03/30/21 04:28 Lymphocytes # (Manual) 0.2 K/mm3 (1.2-5.4) L 03/30/21 04:28 Abs React Lymphs (Man) 0.0 K/mm3 03/30/21 04:28 Monocytes # (Manual) 0.0 K/mm3 (0.0-0.8) 03/30/21 04:28 Eosinophils # (Manual) 0.0 K/mm3 (0.0-0.4) 03/30/21 04:28 Basophils # (Manual) 0.0 K/mm3 (0.0-0.1) 03/30/21 04:28 Metamyelocytes # 0.0 K/mm3 03/30/21 04:28 Myelocytes # 0.0 K/mm3 03/30/21 04:28 Promyelocytes # 0.0 K/mm3 03/30/21 04:28 Blast Cells # 0.0 K/mm3 03/30/21 04:28 WBC Morphology Not Reportable 03/30/21 04:28 Hypersegmented Neuts Not Reportable 03/30/21 04:28 Hyposegmented Neuts Not Reportable 03/30/21 04:28 Hypogranular Neuts Not Reportable 03/30/21 04:28 Smudge Cells Not Reportable 03/30/21 04:28 Toxic Granulation Not Reportable 03/30/21 04:28 Toxic Vacuolation Not Reportable 03/30/21 04:28 Dohle Bodies Not Reportable 03/30/21 04:28 Pelger-Huet Anomaly Not Reportable 03/30/21 04:28 Meena Rods Not Reportable 03/30/21 04:28 Platelet Estimate Consistent w auto 03/30/21 04:28 Clumped Platelets Not Reportable 03/30/21 04:28 Plt Clumps, EDTA Not Reportable 03/30/21 04:28 Large Platelets Not Reportable 03/30/21 04:28 Giant Platelets Not Reportable 03/30/21 04:28 Platelet Satelliting Not Reportable 03/30/21 04:28 Plt Morphology Comment Not Reportable 03/30/21 04:28 RBC Morphology Not Reportable 03/30/21 04:28 Dimorphic RBCs Not Reportable 03/30/21 04:28 Polychromasia Few 03/30/21 04:28 Hypochromasia Few 03/30/21 04:28 Poikilocytosis Not Reportable 03/30/21 04:28 Anisocytosis Few 03/30/21 04:28 Microcytosis Not Reportable 03/30/21 04:28 Macrocytosis Not Reportable 03/30/21 04:28 Spherocytes Not Reportable 03/30/21 04:28 Pappenheimer Bodies Not Reportable 03/30/21 04:28 Sickle Cells Not Reportable 03/30/21 04:28 Target Cells Not Reportable 03/30/21 04:28 Tear Drop Cells Not Reportable 03/30/21 04:28 Ovalocytes Not Reportable 03/30/21 04:28 Helmet Cells Not Reportable 03/30/21 04:28 B[place] Bodies Not Reportable 03/30/21 04:28 [place] Rings Not Reportable 03/30/21 04:28 [place] Cells Not Reportable 03/30/21 04:28 Bite Cells Not Reportable 03/30/21 04:28 Crenated Cell Not Reportable 03/30/21 04:28 Elliptocytes Not Reportable 03/30/21 04:28 Acanthocytes (Spur) Not Reportable 03/30/21 04:28 Rouleaux Not Reportable 03/30/21 04:28 Hemoglobin C Crystals Not Reportable 03/30/21 04:28 Schistocytes Not Reportable 03/30/21 04:28 Malaria parasites Not Reportable 03/30/21 04:28 Ramesh Bodies Not Reportable 03/30/21 04:28 Hem Pathologist Commnt No 03/30/21 04:28 PT 14.0 Sec. (12.2-14.9) 03/29/21 20: INR 0.97 (0.87-1.13) 03/29/21 20: APTT 31.4 Sec. (24.2-36.6) 03/29/21 20: Sodium 142 mmol/L (137-145) 03/30/21 04:28 Potassium 3.6 mmol/L (3.6-5.0) D 03/30/21 04:28 Chloride 101.3 mmol/L (98-107) 03/30/21 04:28 Carbon Dioxide 24 mmol/L (22-30) 03/30/21 04:28 Anion Gap 20 mmol/L 03/30/21 04:28 BUN 7 mg/dL (7-17) 03/30/21 04:28 Creatinine 0.5 mg/dL (0.6-1.2) L 03/30/21 04:28 Estimated GFR > 60 ml/min 03/30/21 04:28 BUN/Creatinine Ratio 14 % 03/30/21 04:28 Glucose 203 mg/dL (65-100) H 03/30/21 04:28 POC Glucose 106 mg/dL (70-105) H 04/06/21 08:03 Lactic Acid 1.30 mmol/L (0.7-2.0) 03/29/21 20:27 Calcium 9.0 mg/dL (8.4-10.2) 03/30/21 04:28 Troponin T < 0.010 ng/mL (0.00-0.029) 03/29/21 20:27 NT-Pro-B Natriuret Pep 3058 pg/mL (0-900) H 03/29/21 20:27 Procalcitonin 0.13 ng/mL (<0.15) 04/01/21 06:48 Coronavirus (PCR) Negative (Negative) 03/30/21 10:00 Pham/IV: Voiding Method Toilet Active Medications - Current Medications Current Medications: Generic Name Dose Route Start Last Admin Trade Name Freq PRN Reason Stop Dose Admin Acetaminophen 650 mg 03/30/21 12:57 04/03/21 10:13 Acetaminophen 325 Mg Tab PO 650 mg Q4H PRN Administration Pain MILD(1-3)/Fever >100.5/NAVARRO Albuterol 2 puff 04/04/21 08:00 04/07/21 14:14 Albuterol 8.5 Gm Mdi Inhalation IH 2 puff TIDRT LU Administration Furosemide 40 mg 04/03/21 07:00 04/07/21 10:34 Furosemide 40 Mg/4 Ml Inj IV Not Given QDAY [facility] Heparin Sodium (Porcine) 5,000 unit 03/30/21 06:00 04/07/21 14:13 Heparin 5,000 Unit/1 Ml Vial SUB-Q 5,000 unit Q8HR LU Administration Hydralazine HCl 50 mg 03/30/21 12:00 04/07/21 14:09 Hydralazine 25 Mg Tab PO 50 mg TID LU Administration Hydralazine HCl 10 mg 03/31/21 18:20 Hydralazine 20 Mg/1 Ml Inj IV Q6HR PRN Hypertension Hydromorphone HCl 0.25 mg 03/30/21 12:57 04/01/21 13:30 Hydromorphone 1 Mg/1 Ml Inj IV 0.25 mg Q6H PRN Administration Pain, Moderate (4-6) Hydroxyzine Pamoate 25 mg 03/31/21 22:00 Hydroxyzine Pamoate 25 Mg Cap PO HS PRN Sleep Sodium Chloride 1,000 mls @ 75 mls/hr 03/29/21 23:45 Nacl 0.9% 1000 Ml IV DIRECT LU Labetalol HCl 10 mg 04/01/21 21:32 Labetalol 20 Mg/4 Ml Inj IV Q6H PRN Hypertension Lisinopril 40 mg 03/30/21 12:00 04/07/21 10:32 Lisinopril 20 Mg Tab PO 40 mg QDAY LU Administration Lorazepam 1 mg 03/31/21 15:00 04/05/21 23:40 Lorazepam 1 Mg Tab PO 1 mg Q6H PRN Administration Anxiety Magnesium Hydroxide 30 ml 03/29/21 23:34 Magnesium Hydroxide (Mom) Oral Liqd Udc PO Q4H PRN Constipation Metoprolol Tartrate 25 mg 03/31/21 12:00 04/07/21 10:31 Metoprolol Tartrate 25 Mg Tab PO 25 mg BID LU Administration Nicotine 7 mg 03/31/21 20:00 04/07/21 10:43 Nicotine 7 Mg/24 Hr Patch TD 7 mg QDAY LU Administration Ondansetron HCl 4 mg 03/29/21 23:34 Ondansetron 4 Mg/2 Ml Inj IV Q8H PRN Nausea And Vomiting Oxycodone/Acetaminophen 1 tab 03/30/21 11:22 04/07/21 16:27 Oxycodone /Acetaminophen 5-325mg Tab PO 1 tab Q6H PRN Administration Pain, Moderate (4-6) Pantoprazole Sodium 40 mg 04/06/21 22:00 04/07/21 10:31 Pantoprazole 40 Mg Tab PO 40 mg BID LU Administration Sodium Chloride 10 ml 03/30/21 10:00 04/07/21 10:33 Sodium Chloride 0.9% 10 Ml Flush Syringe IV 10 ml BID LU Administration Sodium Chloride 10 ml 03/29/21 23:34 Sodium Chloride 0.9% 10 Ml Flush Syringe IV PRN PRN LINE FLUSH Nutrition/Malnutrition Assess - Dietary Evaluation Nutrition/Malnutrition Findings: Nutrition Notes Start: 04/04/21 10:36 Freq: Status: Active Protocol: Document 04/04/21 10:36 SULMA (Rec: 04/04/21 10:39 SULMA [id number]) Nutrition Notes Need for Assessment generated from: LOS Initial or Follow up Brief Note Current Diagnosis Hypertension Other Pertinent Diagnosis COPD exacerbation, Bilat pneu Current Diet Cardiac Labs/Tests No current available Pertinent Medications Lasix Height 5 ft 3 in Weight 54.431 kg [place] Body Weight (kg) 52.27 BMI 21.2 Weight Status Underweight Subjective/Other Information Pt screened for LOS. She has consumed 83% of recorded meals . Percent of energy/protein needs met: 100% energy and pro needs Burn Absent Trauma Absent Current % PO Good (75-100%) Minimum of two criteria No Is patient on ventilator? No Is Patient Ambulatory and/or Out of Bed No REE-([place] Jeor-confined to bed) 1269.804 Calculation Used for Recommendations [facility] Additional Notes Pro needs 1-1.2g/k-65g/ day Fluid needs 1ml/kcal Nutrition Intervention Follow-Up By: 04/11/21 Additional Comments F/U: stable intakes, wt
[2021-04-07] MEDS: LORazepam 1 MG TAB PO PRN (22:17)
[2021-04-08] MEDS: oxyCODONE /ACETAMINOPHEN 5-325MG TAB PO PRN (00:26)
[2021-04-08] MEDS: HEPARIN 5,000 UNIT/1 ML VIAL SUB-Q SCH (05:04)
[2021-04-08 08:14] VITALS: BP 169/70
[2021-04-08] MEDS: ALBUTEROL 8.5 GM MDI INHALATION IH SCH ×3 (09:20→21:45)
[2021-04-08] MEDS: NICOTINE 7 MG/24 HR PATCH TD SCH (09:59)
[2021-04-08] MEDS: hydrALAZINE 25 MG TAB PO SCH (09:59)
[2021-04-08] MEDS: FUROSEMIDE 40 MG/4 ML INJ IV SCH ×2 (10:00→10:01)
[2021-04-08] MEDS: PANTOPRAZOLE 40 MG TAB PO SCH (10:00)
[2021-04-08] MEDS: LISINOPRIL 20 MG TAB PO SCH (10:00)
[2021-04-08] MEDS: METOPROLOL TARTRATE 25 MG TAB PO SCH (10:00)
[2021-04-08] MEDS: LORazepam 1 MG TAB PO PRN (12:49)
== END 2021-04-08 19:00 | disposition home or self-care (01) | DRG 193 ==
LOC: ED 17:29 → 4A 03-30 12:57
PROVIDERS: ADMIT Student in an Organized Health Care Education/Training Program; ATTEND Internal Medicine
DX: J18.9 Pneumonia, unspecified organism (principal); I50.31 Acute diastolic (congestive) heart failure; J96.01 Acute respiratory failure with hypoxia; J44.1 Chronic obstructive pulmonary disease with (acute) exacerbation; J44.0 Chronic obstructive pulmonary disease with (acute) lower respiratory infection; I11.0 Hypertensive heart disease with heart failure; E87.6 Hypokalemia; Z20.822 Contact with and (suspected) exposure to COVID-19; F32.9 Major depressive disorder, single episode, unspecified; F17.200 Nicotine dependence, unspecified, uncomplicated; Z71.6 Tobacco abuse counseling; Z88.6 Allergy status to analgesic agent
CPT/HCPCS: 36415; 71045; 80048; 82140; 82962; 83880; 84145; 84484; 85007; 85025; 85610; 85730; 87040; 87070; 87205; 93005; 93010; 93306; 94640; 94644; 94760; G0378; J3490; J9280; Q0162; C8929; J1170; J1644; J1940; J1956; J2930; J3475; J3480; J7030; U0003